=== PATIENT | female | born 1970 | race Caucasian/White ===

== ENCOUNTER → 2016-08-18 | Outpatient (REF) | payer MEDICAID ==
[2016-08-18 10:16] LABS: BASO % 0.4 % (0.0-1.0); EOS # 0.1 K/mm3 (0.0-0.50); LYMPH # 1.1 K/mm3 (1.5-4.5); LYMPH % 27.6 % (24.0-44.0); MEAN CORPUSCULAR VOLUME 87.5 fl (80.0-96.0); MONO # 0.4 K/mm3 (0.0-0.8); MONO % 8.4 % (0.0-5.0); NEUTROPHILS # 2.4 K/mm3 (1.8-7.7); RED CELL DISTRIBUTION WIDTH 14.3 % (11.5-14.5); WHITE BLOOD COUNT 4.1 K/mm3 (4.0-10.0)
[2016-08-18 10:44] LABS: ALBUMIN 2.8 GM/DL (3.2-5.2); ALKALINE PHOSPHATASE 112 U/L (45-117); ALT/SGPT 32 U/L (12-78); ANION GAP 6 MEQ/L (8-16); AST/SGOT 19 U/L (15-37); BILIRUBIN,TOTAL 0.2 MG/DL (0.2-1.0); BLOOD UREA NITROGEN 18 MG/DL (7-18); CALCIUM LEVEL 8.8 MG/DL (8.5-10.1); CARBON DIOXIDE LEVEL 30 MEQ/L (21-32); CHLORIDE LEVEL 109 MEQ/L (98-107); CHOLESTEROL LEVEL 148 MG/DL (<200); GLOMERULAR FILTRATION RATE > 60.0 (>58); GLUCOSE, FASTING 96 MG/DL (70-105); POTASSIUM SERUM 4.6 MEQ/L (3.5-5.1); SODIUM LEVEL 145 MEQ/L (136-145); TOTAL PROTEIN 7.5 GM/DL (6.4-8.2); TRIGLYCERIDES LEVEL 52 MG/DL (<150)
== END ==
LOC: SKLABADC 08:31
PROVIDERS: ATTEND Orthopaedic Surgery
DX: G30.9 Alzheimer's disease, unspecified (principal); M08.00 Unspecified juvenile rheumatoid arthritis of unspecified site; F02.80 Dementia in other diseases classified elsewhere, unspecified severity, without behavioral disturbance, psychotic disturbance, mood disturbance, and anxiety

== ENCOUNTER 2016-09-19 10:35 | Inpatient (IN) | payer MEDICARE, MEDICAID ==
[~2016-09-19] VITALS: Ht 121.9 cm; Wt 47.5 kg
[2016-09-19 11:44] LABS: MEAN CORPUSCULAR HGB CONC 32.1 g/dl (32.0-36.5); MEAN CORPUSCULAR VOLUME 87.1 fl (80.0-96.0); PLATELET COUNT, AUTOMATED 247 k/mm3 (150-450); RED CELL DISTRIBUTION WIDTH 14.5 % (11.5-14.5); WHITE BLOOD COUNT 4.6 K/mm3 (4.0-10.0)
[2016-09-19 11:47] LABS: ANION GAP 8 MEQ/L (8-16); BLOOD UREA NITROGEN 15 MG/DL (7-18); CALCIUM LEVEL 8.5 MG/DL (8.5-10.1); CARBON DIOXIDE LEVEL 29 MEQ/L (21-32); CHLORIDE LEVEL 103 MEQ/L (98-107); CREATININE FOR GFR 0.44 MG/DL (0.55-1.02); GLOMERULAR FILTRATION RATE > 60.0 (>58); GLUCOSE, FASTING 108 MG/DL (70-105); POTASSIUM SERUM 3.5 MEQ/L (3.5-5.1); SODIUM LEVEL 140 MEQ/L (136-145)
[2016-09-19 12:42] LABS: BANDS 2 % (< 11); EOSINOPHILS 1 % (0-5); NUCLEATED RED BLOOD CELL 1 % (0-0)
[2016-09-19 12:45] LABS: ANISOCYTOSIS 1+; HYPOCHROMASIA 1+; POLYCHROMASIA 1+
[2016-09-19] MEDS ORDERED: NS 1,000 ML IV SCH (12:45)
--- NOTE | 2016-09-19 12:45 | REP ---
CHEST, PORTABLE: AP portable view of the chest is performed. There is no acute infiltrate. The heart does not appear to be significantly enlarged. The mediastinal silhouette appears unremarkable. IMPRESSION: No acute infiltrate. Signed by Shaq Marinelli MD 09/19/2016 04:39 P
--- NOTE | 2016-09-19 14:09 | REP ---
CT HEAD WITHOUT CONTRAST: HISTORY: Weakness. Areas of decreased attentuation are present in the periventricular white matter. This represents small vessel ischemic disease. There is no intraparenchymal hemorrhage, mass, or midline shift. Calcifications are present in the cerebellum. The ventricular system and cortical sulci as well as subarachnoid space in the posterior fossa are dilated consistent with mild volume loss. There is no extracerebral collection. The visualized sinuses are clear. There is diffuse thickening of the calvarium. IMPRESSION: 1. Small vessel ischemic disease. 2. Mild volume loss. Signed by Fco Masterson MD 09/19/2016 02:23 P
[2016-09-19] MEDS ORDERED: ONDANSETRON 4MG/2ML VIAL (J2405) IV PRN (15:00)
[2016-09-19] MEDS ORDERED: ACETAMINOPHEN TAB 650MG DOSE (2X325MG) PO PRN (15:00)
[2016-09-19] MEDS ORDERED: LORazepam 2 MG/ML VIAL (J2060) IV STA (15:28)
[2016-09-19 16:09] LABS: ERYTHROCYTE SEDIMENTATION RATE 67 mm/hr (0-20)
--- NOTE | 2016-09-19 16:39 | HPEPDOC ---
General Date of Admission Sep 19, 2016 at 14:50 Primary Care Physician: OYAV MCINTOSH MD Chief Complaint The patient is a 46-year-old female admitted with a reason for visit of AMS Source: Patient, Family Exam Limitations: Clinical conditions History of Present Illness Ms. Hawkins is a 46-year-old female who presents to the ED with altered mental status. She is accompanied by 2 of her brothers, one of which is her caregiver. She has had baseline mental retardation since , her mother had decided not to pursue further testing when she was a child, therefore she does not have any official diagnosis at this time. Over the past 1-1.5 weeks she has become more recluse, less interactive, less interested in activities that she previously enjoyed such as watching television and having a conversation. Now, she only sits quietly in the corner and does not interact with anyone or anything else. Approximately one week ago she did have diarrhea, and she had a fever approximately 4 days ago, and during that time she is also had decreased oral intake, therefore she does not particularly have formed stools at this time, but her caregiver informs us that she is only really been drinking liquid supplementation, and has not eaten real meals for a few days. In addition to this she has also been avoiding the use of her right leg. Apparently at baseline she is able to ambulate with a walker, she may need assist of one person to stand her up to get to a walker. Over the past 1-1.5 weeks she has not been able to ambulate with a walker, and does not move her right leg. The caregiver states that she does not appear to be in pain as he is able to pick her up and place her into a wheelchair without any complaints from her. She also had x-rays done of her bilateral lower extremities performed at the [facility] in [facility] on [facility], and apparently these records are available at her PCP's office in [facility]. According to her caregiver it appears that all of these x-rays were negative. Upon questioning her, she does respond with some appropriate responses such as "I want to go home" and when asked if she is in pain she replied appropriately "my back hurts" and therefore she does have fluent speech with no difficulty word finding or word substitution, but according to her caregivers she is significantly less interactive, and she only answers just a few questions, where normally she would be very talkative. 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 Apparently after her hip replacement she was able to ambulate freely, but over the years her hip replacements of deteriorated and she has not had them replaced, therefore she now requires ambulation with a walker. Bilateral cataract repair Family History Significant Family History: No pertinent family hx Social History * Smoker: Denies Alcohol: Denies Drugs: denies Recent Travel/Sick Contacts: Denies: Recent sick contacts, Recent travel Psychosocial History: Mental handicap Lives at home with her brother and his , and previously she was cared for by her mother who had . She does go out to adult daycare at the [facility]. Review of Symptoms Other systems Secondary to mental status, review of systems is unobtainable. She does state that she has back pain, and that she wishes to go home. Caregiver denies any fevers, chills, indication of pain or malaise over the past few days. She did have a fever approximately 4 days ago, but none since. Caregiver also denies any nausea, vomiting, does admit to loose stools recently and diarrhea approximately 1 week ago. Otherwise, they're not aware of any additional symptomatology. Physical Examination General Exam: Positive: Alert, Cooperative, Mild Distress, Other (constantly turning her head from left to right, possibly indicating some anxiety about her surroundings) Eye Exam: Positive: Conjunctiva & lids normal, EOMI, Negative: Sclera icteric ENT Exam: Positive: Atraumatic Neck Exam: Positive: Supple, Negative: JVD, thyromegaly Chest Exam: Positive: Clear to auscultation, Normal air movement Heart Exam: Positive: Normal S1, Normal S2, Rate Normal, Regular Rhythm, Negative: Murmurs, Rubs Telemetry: Positive: No significant arrhythmia, Sinus, Tachycardia Abdomen Exam: Positive: Normal bowel sounds, Soft, Negative: Hepatospenomegaly, Tenderness Extremity Exam: Positive: Normal pulses, Negative: Clubbing, Cyanosis, Edema Skin Exam: Positive: Nl turgor and temperature, Negative: Breakdown, Lesion Neuro Exam: Positive: Cranial Nerves 3-12 NL, Normal Gait, Normal Speech, Reflexes 2+ Psych Exam: Positive: Mental status NL, Mood NL, Oriented x 3 Vital Signs Temperature 97.5, pulse 110 regular, respiratory rate 20, blood pressure 126/84 , pulse oximetry 96% on room air Laboratory Data Labs 24H Laboratory Tests 2 09/19/16 11:13: Anion Gap 8, Anisocytosis 1+, Atypical Lymphocytes 8H, Band Neutrophils 2, White Blood Count 4.6, Red Blood Count 4.38, Hemoglobin 12.2, Hematocrit 38.1, Mean Corpuscular Volume 87.1, Mean Corpuscular Hemoglobin 28.0, Mean Corpuscular Hemoglobin Concent 32.1, Red Cell Distribution Width 14.5, Platelet Count 247, Neutrophils (%) (Auto) , Lymphocytes (%) (Auto) , Monocytes (%) (Auto ) , Eosinophils (%) (Auto) , Basophils (%) (Auto) , Neutrophils # (Auto) , Lymphocytes # (Auto) , Monocytes # (Auto) , Eosinophils # (Auto) , Basophils # ( Auto) , C-Reactive Protein, Quantitative 7.08H, Blood Urea Nitrogen 15, Creatinine 0.44L, Sodium Level 140, Potassium Level 3.5, Chloride Level 103, Carbon Dioxide Level 29, Calcium Level 8.5, Total Creatine Kinase 49, Creatine Kinase MB 1.0, Creatine Kinase MB Relative Index 2.04, Eosinophils (Manual) 1, Glomerular Filtration Rate > 60.0, Hypochromasia 1+, Lactic Acid Level 1.2, Large Unclassified Cells # , Large Unclassified Cells % , Lymphocytes (Manual) 24, Monocytes (Manual) 14H, Neutrophils 51, Nucleated Red Blood Cells 1H, Platelet Estimate NORMAL, Polychromasia 1+ 09/19/16 11:28: Urine Amorphous Sediment , Urine Appearance CLOUDYH, Urine Color CHUY, Urine pH 6.0, Urine Specific [place] 1.020, Urine Protein 1+H, Urine Glucose (UA) NEGATIVE, Urine Ketones 1+H, Urine Urobilinogen 4.0H, Urine Bilirubin NEGATIVE, Urine Leukocyte Esterase NEGATIVE, Urine Bacteria (Auto) NEGATIVE, Urine Blood NEGATIVE, Urine Calcium Carbonate Cryst(Auto) , Urine Calcium Oxalate Cryst ( Auto) , Urine Calcium Phosphate Minal (Auto) , Urine Cellular Casts , Urine Cystine Crystals , Urine Granular Casts (Auto) , Urine Hyaline Casts (Auto) 0, Urine Leucine Crystals , Urine Mucus (Auto) SMALL, Urine Nitrite NEGATIVE, Urine Oval Fat Bodies (Auto) , Urine RBC (Auto) 0, Urine Renal Epithelial Cells , Urine Sperm (Auto) , Urine Squamous Epithelial Cells 0, Urine Transitional Epithelial Cells , Urine Trichomonas (Auto) , Urine Triple Phosphate Cryst (Auto ) , Urine Tyrosine Crystals , Urine Uric Acid Crystals (Auto) , Urine WBC (Auto ) 0, Urine Waxy Casts (Auto) , Urine Yeast-Like Cells (Auto) CBC/BMP Laboratory Tests 09/19/16 11:13 Calcium Level 8.5, Total Creatine Kinase 49, Red Blood Count 4.38, Mean Corpuscular Volume 87.1, Mean Corpuscular Hemoglobin 28.0, Mean Corpuscular Hemoglobin Concent 32.1, Red Cell Distribution Width 14.5, Neutrophils (%) (Auto ) , Lymphocytes (%) (Auto) , Monocytes (%) (Auto) , Eosinophils (%) (Auto) , Basophils (%) (Auto) , Neutrophils # (Auto) , Lymphocytes # (Auto) , Monocytes # (Auto) , Eosinophils # (Auto) , Basophils # (Auto) Microbiology Microbiology 09/19/16 Urine Culture, Received Pending Problems (1) Altered mental status Status: Acute Problem Text: Initial laboratory evaluation performed in the ED of UA, BMP, lactic acid, CBC, head CT, and chest x-ray did not reveal any obvious etiology of her decreased mentation. Therefore she will be admitted to the hospital for further evaluation. As the patient is unable to provide a good history or admit to any symptomatology, we will cast a wide net. We will order CBC, ammonia, GI panel, respiratory panel, we will go ahead and order a urine culture as well and despite a benign UA. Differential diagnosis may include infectious etiology of the GI tract, urinary tract, respiratory tract, or REAL [employer]ICE SUPER[employer]OR. We will start her on normal saline. Other differential diagnosis may include stroke, acute decline in chronic cognitive impairment, Lewy body dementia or other early onset dementia, for which imaging has been ordered. (2) Right leg weakness Status: Acute Problem Text: As she has exhibited some right leg weakness, this may be secondary to pain, although her caregiver does not seem to think that she has exhibited much pain. On exam she was able to move all 4 extremities, and neurological exam was intact, therefore a neurological etiology is less likely. We will request copies of her imaging that was taken previously, and will order further imaging based on what is already been done. We will also have the physical therapy come and do an evaluation as well, and have them monitor her progress. (3) Decreased interest in activities Status: Acute (4) Elevated LFTs Status: Acute Problem Text: Will order Gallbladder US, amylase, lipase, will continue to monitor labwork as well. (5) Abnormal brain MRI Status: Acute Problem Text: Will consult Neurology for their input concerning her whole presentation, especially in light of her abnormal Brain MRI. (6) Protruded lumbar disc Status: Acute Problem Text: May be contributing to her back pain although there is no indication of compression of the nerves as they exit the foramina (at least while laying flat on the MRI table). (7) Back pain Status: Chronic Problem Text: She does grimace when lifting her legs, and she is complaining of back pain, but caregiver states that he has been able to pick her up and put her in wheelchair without complaint. She often complains of back pain, it is difficult to determine the severity of this. (8) Bruxism (teeth grinding) Status: Chronic Problem Text: She often does this per caregiver, but she is now doing this nonstop, which is different from her baseline Plan / VTE VTE Prophylaxis Ordered?: Yes (Heparin) SARHA MCDOWELL DO Sep 19, 2016 16:06
--- NOTE | 2016-09-19 17:19 | REP ---
MRI BRAIN WITHOUT CONTRAST: HISTORY: Altered mental status. COMPARISON: CT 09/19/2016. Diffuse increased signal intensity on T2-weighted images is present in the periventricular and subcortical white matter. There is no intraparenchymal hemorrhage, infarct, mass or midline shift. Decreased signal intensity on T2-weighted images is present in the basal ganglia. The ventricular system and cortical sulci as well as subarachnoid space in the posterior fossa are dilated consistent with mild volume loss. There is no extracerebral collection. There is diffuse thickening of the calvarium. Minimal mucosal thickening is present in the right maxillary sinus. IMPRESSION: There is diffuse increased signal intensity in the periventricular and subcortical white matter in the cerebral hemispheres. This may represent small vessel ischemic, metabolic or possibly dysmyelinating disease. Signed by Fco Masterson MD 09/20/2016 08:39 A
--- NOTE | 2016-09-19 17:20 | REP ---
MR LUMBAR SPINE WITHOUT AND WITH CONTRAST: HISTORY: Back pain. CONTRAST: ProHance 10 mL. Slight decreased signal intensity on T2 weighted images is present in the L3-4 through L5-S1 intervertebral discs. The discs are decreased in height. These findings are consistent with disc degeneration. There is no disc bulge or herniation at the L1-2, L2-3, L4-5, and L5-S1 levels. The nerves exit the neural foramina without compression. A small central disc protrusion is present at the L3-4 level. There is minimal compression of the thecal sac. The L3 nerves exit the neural foramina without compression. The conus medullaris is normal in appearance terminating at the level of the L1-2 intervertebral disc . Normal signal intensity is present in the lumbar vertebral bodies. IMPRESSION: Small disc protrusion at the L3-4 level with minimal thecal sac compression. Signed by Fco Masterson MD 09/20/2016 08:37 A
[2016-09-19] MEDS: NS 1,000 ML IV SCH (17:49)
[2016-09-19 18:05] LABS: ALBUMIN 2.4 GM/DL (3.2-5.2); ALBUMIN/GLOBULIN RATIO 0.67 (1.00-1.93); ALKALINE PHOSPHATASE 190 U/L (45-117); ALT/SGPT 183 U/L (12-78); ANION GAP 5 MEQ/L (8-16); AST/SGOT 114 U/L (15-37); BILIRUBIN,TOTAL 0.3 MG/DL (0.2-1.0); BLOOD UREA NITROGEN 13 MG/DL (7-18); CALCIUM LEVEL 7.7 MG/DL (8.5-10.1); CARBON DIOXIDE LEVEL 29 MEQ/L (21-32); CHLORIDE LEVEL 109 MEQ/L (98-107); CREATININE FOR GFR 0.31 MG/DL (0.55-1.02); GLOMERULAR FILTRATION RATE > 60.0 (>58); GLUCOSE, FASTING 89 MG/DL (70-105); POTASSIUM SERUM 3.9 MEQ/L (3.5-5.1); SODIUM LEVEL 143 MEQ/L (136-145)
[2016-09-19 19:10] LABS: AMYLASE 53 U/L (25-115)
[2016-09-19] MEDS: HEPARIN SOD (PORCINE) 5000 UNITS/ML VIAL SC SCH (21:30)
[2016-09-19 22:00] VITALS: BP 124/78
[2016-09-20] MEDS: NS 1,000 ML IV SCH ×3 (04:20→22:38)
[2016-09-20] MEDS: HEPARIN SOD (PORCINE) 5000 UNITS/ML VIAL SC SCH ×3 (05:23→22:37)
[2016-09-20 06:00] VITALS: BP 148/79
[2016-09-20 07:03] LABS: MEAN CORPUSCULAR HEMOGLOBIN 27.5 pg (27.0-33.0); MEAN CORPUSCULAR HGB CONC 31.4 g/dl (32.0-36.5); MEAN CORPUSCULAR VOLUME 87.6 fl (80.0-96.0); PLATELET COUNT, AUTOMATED 211 k/mm3 (150-450); RED CELL DISTRIBUTION WIDTH 14.4 % (11.5-14.5); WHITE BLOOD COUNT 3.1 K/mm3 (4.0-10.0)
[2016-09-20 07:35] LABS: BANDS 12 % (< 11)
[2016-09-20 07:36] LABS: ANISOCYTOSIS 1+
[2016-09-20 07:56] LABS: ALBUMIN 2.3 GM/DL (3.2-5.2); ALBUMIN/GLOBULIN RATIO 0.55 (1.00-1.93); ALKALINE PHOSPHATASE 189 U/L (45-117); ALT/SGPT 154 U/L (12-78); AMYLASE 46 U/L (25-115); ANION GAP 7 MEQ/L (8-16); AST/SGOT 82 U/L (15-37); BILIRUBIN,DIRECT 0.2 MG/DL (0.0-0.2); BILIRUBIN,TOTAL 0.4 MG/DL (0.2-1.0); BLOOD UREA NITROGEN 7 MG/DL (7-18); CALCIUM LEVEL 7.6 MG/DL (8.5-10.1); CARBON DIOXIDE LEVEL 26 MEQ/L (21-32); CHLORIDE LEVEL 107 MEQ/L (98-107); CHOLESTEROL LEVEL 116 MG/DL (<200); GLOMERULAR FILTRATION RATE > 60.0 (>58); GLUCOSE, FASTING 91 MG/DL (70-105); POTASSIUM SERUM 3.4 MEQ/L (3.5-5.1); SODIUM LEVEL 140 MEQ/L (136-145); TOTAL PROTEIN 6.5 GM/DL (6.4-8.2); TRIGLYCERIDES LEVEL 99 MG/DL (<150)
[2016-09-20] MEDS ORDERED: POTASSIUM CHLORIDE 10 MEQ SR TABLET PO ONE (08:15)
--- NOTE | 2016-09-20 09:41 | REP ---
RIGHT UPPER QUADRANT ULTRASOUND: Real-time sonographic evaluation of the right upper quadrant performed. Gallbladder demonstrates no evidence of intraluminal sludge or calculi, wall thickening or pericholecystic fluid. There is no intrahepatic or extrahepatic biliary dilatation, common bile duct measuring 2 mm in diameter. The liver and pancreas demonstrate no gross mass. The pancreas is not optimally seen due to overlying bowel gas. Right kidney appears somewhat atrophic with a length of 8.1 cm. There is no hydronephrosis. The study is somewhat limited due to patient motion. IMPRESSION: Essentially negative right upper quadrant ultrasound. Mild right renal atrophy. Signed by Shaq Marinelli MD 09/20/2016 12:14 P
[2016-09-20 14:00] VITALS: BP 166/91
[2016-09-20] MEDS ORDERED: ALBUTEROL SULFATE 2.5 MG/0.5 ML INH NEB SOLN INH PRN (14:45)
[2016-09-20] MEDS ORDERED: guaiFENesin DM LIQ 10ML UD PO PRN (14:45)
--- NOTE | 2016-09-20 14:51 | IPNPDOC ---
Text Note Date of Service The patient was seen on 09/20/16. NOTE Subjective: Pt still feels ill. Denies CP/SOB/Palpitations. Objective: Vitals: (see below) General: No acute distress, laying comfortably in bed. HEENT: Moist mucous membranes. Neck: No JVD or lymphadenopathy Cardiac: RRR, No murmurs Pulm: Exp wheezing and rhonchi b/l. No stridor or use of accessory muscles. Abd: NT/ND + BS Ext: No edema or cyanosis. Strength 5/5 BUE. Unable to access strength of BLE as pt is not cooperating. Labs (see below) Images: CT Head 09/19/16 IMPRESSION: 1. Small vessel ischemic disease. 2. Mild volume loss. MRI Brain 09/19/16 IMPRESSION: There is diffuse increased signal intensity in the periventricular and subcortical white matter in the cerebral hemispheres. This may represent small vessel ischemic, metabolic or possibly dysmyelinating disease. MRI lumbar spine 09/19/16 IMPRESSION: Small disc protrusion at the L3-4 level with minimal thecal sac compression. Abd u/s 09/19/16 IMPRESSION: Essentially negative right upper quadrant ultrasound. Mild right renal atrophy. Assessment/Plan 1. Metabolic encephalopathy 2/2 viral illness. Improved. 2. Acute bronchitis - viral. nebs/steroids/Robitussin 2. Dehydration 2/2 viral illness - cont IVF 3. Transaminitis - trending down. Abd u/s negative. Cont to monitor. 4. ?RLE weakness. MRI Brain (see above). Unable to access strength as pt is not cooperating. PT and neuro eval. 5. Mental retardation since . 6. Disc herniation - physical therapy and pain control DVT prophy: Hep SQ VS,Fishbone, I+O VS, Fishbone, I+O Laboratory Tests 09/19/16 17:30 Calcium Level 7.7 L, Aspartate Amino Transf (AST/SGOT) 114 H, Alanine Aminotransferase (ALT/SGPT) 183 H, Alkaline Phosphatase 190 H, Total Bilirubin 0.3, Total Protein 6.0 L, Albumin 2.4 L 09/20/16 06:47 Red Blood Count 4.01, Mean Corpuscular Volume 87.6, Mean Corpuscular Hemoglobin 27.5, Mean Corpuscular Hemoglobin Concent 31.4 L, Red Cell Distribution Width 14.4, Neutrophils (%) (Auto) , Lymphocytes (%) (Auto) , Monocytes (%) (Auto) , Eosinophils (%) (Auto) , Basophils (%) (Auto) , Neutrophils # (Auto) , Lymphocytes # (Auto) , Monocytes # (Auto) , Eosinophils # (Auto) , Basophils # ( Auto) Vital Signs Date Time Temp Pulse Resp B/P Pulse Ox O2 Delivery O2 Flow Rate FiO2 09/20/16 14:00 100.7 112 16 166/91 93 Room Air I&O- Last 24 Hours up to 6 AM 09/20/16 06:00 Intake Total 1800 ml Output Total 0 ml Balance 1800 ml DAHIANA PEDRAZA MD Sep 20, 2016 14:50
[2016-09-20] MEDS: ACETAMINOPHEN TAB 650MG DOSE (2X325MG) PO PRN ×2 (14:52→22:37)
[2016-09-20] MEDS: IPRATROPIUM 0.5MG/ALBUTEROL 2.5MG INH SOL UD 3ML (DUONEB)(J7620) NEB SCH ×3 (15:13→23:47)
[2016-09-20] MEDS: methylPREDNISolone INJ 125 MG/2 ML VIAL (J2930) IV SCH (16:28)
--- NOTE | 2016-09-20 19:32 | CR ---
DATE OF PAIN CLINIC CONSULTATION: 09/20/2016 REFERRING PHYSICIAN: Dana Love MD CHIEF COMPLAINT: Pain. HISTORY OF PRESENT ILLNESS: Jazmyn is a 46-year-old female admitted yesterday with complaints of fever and mental status changes. The patient has mental retardation since . She is cared for by her brother and his . Brother is at the bedside. Brother tells me that she is not in pain and that she cries and reacts in this manner because she wants to go home. There has been a question of why her right leg is not moving and neurology has been consulted. MRI of the lumbosacral spine is without neural deficits. The patient does not exhibit any pain with palpation of her spine or sacroiliac joint region. According to the history from the brother/recreational therapist she has been "not herself" over the past week. MEDICATIONS: No active prescriptions or reported medications. ALLERGIES: SULFA ANTIBIOTICS. PAST MEDICAL HISTORY: Mental retardation. Vitamin D deficiency. PAST SURGICAL HISTORY Bilateral hip replacement at age 20. Bilateral cataract repair. FAMILY HISTORY: No significant family history. SOCIAL HISTORY: According to brother denies recent sick contacts or recent travel. Lives at home with her brother and his and previously was cared for by her mother who had . She goes to adult daycare at [facility]. She is not a smoker. She does not use alcohol. REVIEW OF SYSTEMS: Obtainable only through recreational therapist at bedside and positive for decreased oral intake of both fluids and solids. Four day history of a fever. Episodes of loose stool. Mental status changes. PHYSICAL EXAMINATION: Awake, alert. Appears acutely ill. Cooperative with assist of brother. Vital signs: 100.7, 112, 16, 166/91, O2 saturation 93% on room air. Heart: Cardiovascular - Heart rate regular. S1-S2. Respiratory: Decreased breath sounds bilaterally with coarse rhonchi bilaterally. Inspection of spine: Palpation - negative for pain. Lower extremities warm to touch. Does not show signs of pain with palpation of her legs. No swelling noted. ASSESSMENT: Right leg neuropathy. PLAN: At this point I do not think it is necessary to consider placing her on any pain medications. Possibly use of tramadol 50 mg every 4 hours if family members feel that she is uncomfortable to treat the pain would be appropriate. Continue with efforts for physical therapy (PT) and rehab. Thank you for allowing us to participate in the care of your patient. If you have any questions or concerns please do not hesitate to contact me. Sincerely, Sheeba Méndez, Family nurse practitioner [facility]. FELIX
--- NOTE | 2016-09-20 21:32 | ECGEPIP ---
Stationary ECG Study [facility] - ED Test Date: 2016-09-19 Pat Name: JOHNNA RIVERO Department: Room: - Gender: F Ticket Agent: JKarlos : [id number] Requested By: ADIEL Carr Order Number: [id number] Reading MD: Rebecca Vences Measurements Intervals [place] Rate: 111 P: 41 TN: 145 QRS: 43 QRSD: 62 T: 46 QT: 293 QTc: 398 Interpretive Statements SINUS TACHYCARDIA NONSPECIFIC T-WAVE ABNORMALITY ABNORMAL RHYTHM ECG NO PRIOR FOR COMPARISON Electronically Signed On 09-20-2016 21:32:27 EDT by Rebecca Vences
[2016-09-20 22:00] VITALS: BP 147/72
[2016-09-21] MEDS: methylPREDNISolone INJ 125 MG/2 ML VIAL (J2930) IV SCH ×3 (00:52→15:32)
[2016-09-21] MEDS: IPRATROPIUM 0.5MG/ALBUTEROL 2.5MG INH SOL UD 3ML (DUONEB)(J7620) NEB SCH ×5 (03:12→22:02)
[2016-09-21] MEDS: HEPARIN SOD (PORCINE) 5000 UNITS/ML VIAL SC SCH ×4 (05:53→21:27)
[2016-09-21] MEDS: NS 1,000 ML IV SCH ×2 (05:53→15:16)
[2016-09-21 06:00] VITALS: BP 146/80
[2016-09-21 06:58] LABS: MEAN CORPUSCULAR HGB CONC 32.4 g/dl (32.0-36.5); MEAN CORPUSCULAR VOLUME 86.4 fl (80.0-96.0); PLATELET COUNT, AUTOMATED 224 k/mm3 (150-450); RED CELL DISTRIBUTION WIDTH 14.4 % (11.5-14.5); WHITE BLOOD COUNT 9.4 K/mm3 (4.0-10.0)
[2016-09-21 07:06] LABS: ALBUMIN/GLOBULIN RATIO 0.47 (1.00-1.93); ALKALINE PHOSPHATASE 210 U/L (45-117); ALT/SGPT 116 U/L (12-78); ANION GAP 11 MEQ/L (8-16); AST/SGOT 44 U/L (15-37); BILIRUBIN,DIRECT 0.1 MG/DL (0.0-0.2); BILIRUBIN,TOTAL 0.3 MG/DL (0.2-1.0); BLOOD UREA NITROGEN 6 MG/DL (7-18); CALCIUM LEVEL 7.5 MG/DL (8.5-10.1); CARBON DIOXIDE LEVEL 21 MEQ/L (21-32); CHLORIDE LEVEL 110 MEQ/L (98-107); CREATININE FOR GFR 0.36 MG/DL (0.55-1.02); GLOMERULAR FILTRATION RATE > 60.0 (>58); GLUCOSE, FASTING 160 MG/DL (70-105); POTASSIUM SERUM 3.4 MEQ/L (3.5-5.1); SODIUM LEVEL 142 MEQ/L (136-145); TOTAL PROTEIN 6.3 GM/DL (6.4-8.2)
[2016-09-21 07:35] LABS: BANDS 6 % (< 11)
[2016-09-21 07:36] LABS: ANISOCYTOSIS 1+
--- NOTE | 2016-09-21 07:49 | CR ---
DATE OF CONSULTATION: 09/20/2016 REFERRING PHYSICIAN: Dana Love MD REASON FOR CONSULTATION: Abnormal gait and altered mental status. HISTORY OF PRESENT ILLNESS: Jazmyn Hawkins is a 46-year-old woman who was admitted at [facility] due to altered mental status. Her brothers are her caregivers. She has history of developmental delay since . 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 She also has history of juvenile rheumatoid arthritis. According to her brother, who is her caregiver, that whenever she gets infection or sick her functional and cognitive abilities decline rapidly. Patient needed special education. According to her brother, she did do the best in her life between age 10-37 years of age. He has noted decline in her cognitive, speech and motor skills over the last 10 years. Her primary care physician diagnosed her with dementia over last couple of years. There was a plan for her to see a neurologist but that did not happen. Patient herself is not able to provide much history. She has diarrhea for the last 1 week. She had fever 4 days ago at home. She has decreased oral intake. She became less interactive, more reclusive and less interested in activities. At her baseline, she is able to ambulate with a walker. She may need assistance from one person or stand up with a walker. Over the last 1 week, she has not been able to ambulate with a walker. She was not moving her right leg properly. Patient denies any headaches, neck or back pain. DIAGNOSTIC STUDIES: Her MRI scan of brain was reviewed and showed diffuse increased signal in bilateral cerebral white matter. There is also atrophy of white matter and lund matter diffusely. PAST MEDICAL HISTORY: 1. Mental retardation since . 2. Juvenile rheumatoid arthritis. 3. Bilateral hip dislocation at requiring hip replacements later. 4. Cataract repair. ALLERGIES: SULFA. FAMILY HISTORY: There is no family history of neurological disorders or developmental delay. SOCIAL HISTORY: She denies smoking, alcohol or illicit drugs. REVIEW OF SYSTEMS: All systems were reviewed with the patient and her brother and were found to be noncontributory except as mentioned in the history of present illness. PHYSICAL EXAMINATION: Temperature 97.3 and her maximum temperature in the last 48 hours was 100.7. Pulse 112. Respiratory rate 16. Blood pressure 166/91. 93% saturations on room air. Heart: Regular rate and rhythm. Lungs: Clear to auscultation. Abdomen: Soft, nontender, nondistended. No pedal edema. Neurological exam: Patient is awake and oriented to self mostly. Her speech is mildly dysarthric. Extraocular muscles are intact. No (dictation cut off). Tongue and uvula are midline. 4/5 strength in bilateral upper extremities. Strength in her bilateral lower extremities is 4-/5. Deep tendon flexes are 2+ throughout. Her plantars are mute. Gait could not be tested. ASSESSMENT: 1. 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 2. 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 3. Premature and hypoxic injury can also result in similar clinical profile. 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 4. There is no evidence of an acquired demyelinating disease such as multiple sclerosis or ischemic stroke. PLAN: 1. Physical and occupational therapy. 2. Continue treatment of her current upper respiratory or gastrointestinal (GI) infection as deemed appropriate by primary medicine team.
[2016-09-21] MEDS ORDERED: POTASSIUM CHLORIDE 10 MEQ SR TABLET PO ONE (09:00)
[2016-09-21] MEDS: ACETAMINOPHEN TAB 650MG DOSE (2X325MG) PO PRN (09:09)
[2016-09-21] MEDS ORDERED: traMADol 50 MG TAB PO PRN (09:30)
--- NOTE | 2016-09-21 10:15 | REP ---
CT of the chest without IV contrast: Comparison is the portable plain film study dated 09/19/2016. There are multifocal confluent subsegmental infiltrates in all lobes of both lungs. These are not visible on the comparison portable study. There are no pleural effusions. No masses are identified, however, masses could be obscured by the infiltrates. There is a borderline enlarged aorticopulmonic mediastinal node measuring 9 mm short axis. There is no other mediastinal lymphadenopathy. There is no axillary lymphadenopathy. The study is insensitive for hilar adenopathy in the absence of IV contrast. The unenhanced thoracic aorta is unremarkable. Cardiac size is normal. The unenhanced visualized upper abdominal contents are unremarkable. Impression: Multifocal confluent subsegmental infiltrates in all lobes of both lungs. These infiltrates are not visible on the comparison portable plain film study. Signed by Shaq Wallis MD 09/21/2016 10:07 A
[2016-09-21] MEDS: LevoFLOXacin IV 500 MG in APPROPRIATE DILUENT 1 EA IV SCH (13:09)
--- NOTE | 2016-09-21 14:16 | IPNPDOC ---
Text Note Date of Service The patient was seen on 09/21/16. NOTE Subjective: Pt still coughing. Denies CP/SOB/Palpitations. Objective: Vitals: (see below) General: No acute distress, laying comfortably in bed. HEENT: Moist mucous membranes. Neck: No JVD or lymphadenopathy Cardiac: RRR, No murmurs Pulm: Exp wheezing and rhonchi b/l. No stridor or use of accessory muscles. Abd: NT/ND + BS Ext: No edema or cyanosis. Strength 5/5 BUE. Unable to access strength of BLE as pt is not cooperating. Labs (see below) Images: CT Head 09/19/16 IMPRESSION: 1. Small vessel ischemic disease. 2. Mild volume loss. MRI Brain 09/19/16 IMPRESSION: There is diffuse increased signal intensity in the periventricular and subcortical white matter in the cerebral hemispheres. This may represent small vessel ischemic, metabolic or possibly dysmyelinating disease. MRI lumbar spine 09/19/16 IMPRESSION: Small disc protrusion at the L3-4 level with minimal thecal sac compression. Abd u/s 09/19/16 IMPRESSION: Essentially negative right upper quadrant ultrasound. Mild right renal atrophy. CT Chest 09/21/16 Impression: Multifocal confluent subsegmental infiltrates in all lobes of both lungs. These infiltrates are not visible on the comparison portable plain film study. Assessment/Plan 1. Metabolic encephalopathy 2/2 sepsis from CAP and viral illness. Improved. 2.Sepsis from CAP - multifocal (See CT chest above) - Started on Levaquin. Nebs/ steroids/Robitussin 3. Dehydration 2/2 #2 - cont IVF 3. Transaminitis - trending down. Abd u/s negative. Cont to monitor. 4. ?RLE weakness. MRI Brain (see above). Unable to access strength as pt is not cooperating. PTeval. Appreciate neuro input- leukodystrophy. 5. Mental retardation since . 6. Disc herniation - physical therapy and pain control. Pain management recommending tramadol. DVT prophy: Hep SQ VS,Fishbone, I+O VS, Fishbone, I+O Laboratory Tests 09/21/16 06:13 Red Blood Count 3.93 L, Mean Corpuscular Volume 86.4, Mean Corpuscular Hemoglobin 28.0, Mean Corpuscular Hemoglobin Concent 32.4, Red Cell Distribution Width 14.4, Neutrophils (%) (Auto) , Lymphocytes (%) (Auto) , Monocytes (%) (Auto) , Eosinophils (%) (Auto) , Basophils (%) (Auto) , Neutrophils # (Auto) , Lymphocytes # (Auto) , Monocytes # (Auto) , Eosinophils # (Auto) , Basophils # (Auto) Vital Signs Date Time Temp Pulse Resp B/P Pulse Ox O2 Delivery O2 Flow Rate FiO2 09/21/16 09:00 Room Air 09/21/16 06:00 98.3 108 16 146/80 93 I&O- Last 24 Hours up to 6 AM 09/21/16 06:00 Intake Total 1920 ml Output Total 0 ml Balance 1920 ml DAHIANA PEDRAZA MD Sep 21, 2016 14:16
[2016-09-21 14:50] VITALS: BP 136/78
[2016-09-21 16:00] VITALS: BP 137/87
[2016-09-21 19:38] VITALS: BP 147/88
[2016-09-21] MEDS: guaiFENesin ER 600 MG TAB PO SCH (21:27)
[2016-09-22] VITALS (7 sets, daily range): BP systolic 113–162; BP diastolic 69–89
[2016-09-22] MEDS: methylPREDNISolone INJ 125 MG/2 ML VIAL (J2930) IV SCH ×4 (00:28→23:47)
[2016-09-22] MEDS: NS 1,000 ML IV SCH (00:31)
[2016-09-22] MEDS: IPRATROPIUM 0.5MG/ALBUTEROL 2.5MG INH SOL UD 3ML (DUONEB)(J7620) NEB SCH ×7 (03:58→23:24)
[2016-09-22] MEDS: HEPARIN SOD (PORCINE) 5000 UNITS/ML VIAL SC SCH ×3 (05:07→20:43)
[2016-09-22 05:53] LABS: BASO % 0.1 % (0.0-1.0); EOS % 0.4 % (0.0-3.0); LARGE UNSTAINED CELL # 0.1 K/mm3 (0.0-0.4); LARGE UNSTAINED CELL % 1.2 % (0.0-4.0); LYMPH # 0.8 K/mm3 (1.5-4.5); LYMPH % 7.8 % (24.0-44.0); MEAN CORPUSCULAR HEMOGLOBIN 27.6 pg (27.0-33.0); MEAN CORPUSCULAR VOLUME 86.1 fl (80.0-96.0); MONO # 0.6 K/mm3 (0.0-0.8); MONO % 5.8 % (0.0-5.0); NEUTROPHILS # 8.7 K/mm3 (1.8-7.7); NEUTROPHILS % 84.7 % (36.0-66.0); PLATELET COUNT, AUTOMATED 316 k/mm3 (150-450); WHITE BLOOD COUNT 10.3 K/mm3 (4.0-10.0)
[2016-09-22 06:14] LABS: ALBUMIN/GLOBULIN RATIO 0.49 (1.00-1.93); ALKALINE PHOSPHATASE 167 U/L (45-117); ALT/SGPT 85 U/L (12-78); ANION GAP 10 MEQ/L (8-16); AST/SGOT 39 U/L (15-37); BILIRUBIN,DIRECT < 0.1 MG/DL (0.0-0.2); BILIRUBIN,TOTAL 0.2 MG/DL (0.2-1.0); BLOOD UREA NITROGEN 9 MG/DL (7-18); CALCIUM LEVEL 7.5 MG/DL (8.5-10.1); CARBON DIOXIDE LEVEL 22 MEQ/L (21-32); CHLORIDE LEVEL 114 MEQ/L (98-107); CREATININE FOR GFR 0.28 MG/DL (0.55-1.02); GLOMERULAR FILTRATION RATE > 60.0 (>58); GLUCOSE, FASTING 137 MG/DL (70-105); POTASSIUM SERUM 3.5 MEQ/L (3.5-5.1); SODIUM LEVEL 146 MEQ/L (136-145); TOTAL PROTEIN 6.1 GM/DL (6.4-8.2)
--- NOTE | 2016-09-22 08:32 | PHACANCOPD ---
PHARMACY VANCOMYCIN DOSING Pt Demographics Demographics Patient Age:46 , Weight:52.200 , Gender: female Adjusted Body Weight Date: 09/22/16, Adjusted Body Weight: [48.2] Kg Events Past 24 Hours Events Past 24 Hours: YES: Elevation in WBC, Pending Diagnostics Vancomycin Vancomycin indication: sepsis Vancomycin Target Ranges: 15-20 mcg/ml Vancomycin Load Y/N: Yes Load Dose Date Time Vancomycin Load Dose: 1G Date: 09/22/16 Time: 0900 Vancomycin Dose Date: 09/22/16. Current Vancomycin Dose: [750mg IV Q12H] Intermittent Dosing?: No Labs Labs Item Value Date Time White Blood Count 10.3 K/mm3 H 09/22/16 0518 White Blood Count 9.4 K/mm3 09/21/16 0613 White Blood Count 3.1 K/mm3 L 09/20/16 0647 Creatinine 0.28 MG/DL L 09/22/16 0518 Creatinine 0.30 MG/DL L 09/20/16 0647 Creatinine 0.36 MG/DL L 09/21/16 0613 Micro Microbiology 09/19/16 Blood Culture - Preliminary, Resulted No Growth after 48 hours. All Specime... 09/19/16 Blood Culture - Preliminary, Resulted No Growth after 48 hours. All Specime... 09/19/16 Respiratory Virus Panel (PCR) ([facility]) - Final, Complete Human Metapneumovirus 09/19/16 Urine Culture - Final, Complete Strep Gallolyticus Ssp Pasteu Creatinine Clearance Date:09/22/16. Est Creatinine Clearance: ~[85ml/min]. Pending Labs Vancomycin trough scheduled 09/24/16 @ 0800, prior to the 5th dose Assessment and Plan Maintaining Current Dose?: Yes Reason for dose change: No Dose Change Pharmacist Note Pharmacist Note Date: 09/22/16. Pharmacist note: Day #1 empiric vancomycin initiated with a 1g loading dose, followed by a maintenance regimen of 750mg IV Q12H for the treatment of sepsis to be given with IV levaquin - aiming for a goal trough of 15-20mcg/ml. WBC and pulse are currently elevated, and patient has been mildly febrile within the past 24 hours. 09/21/[address] shows infiltrates in both lungs. No PMH of MRSA or vanco use here at [facility]. The patient's scr today of 0.28 is not reflective of true renal function, and output has not been able to be well documented due to incontinence. A vancomycin trough has been scheduled @0800, prior to the 5th dose. We will continue to monitor and make adjustments accordingly if needed. CURT [facility] Sep 22, 2016 08:32
[2016-09-22] MEDS ORDERED: VANCOMYCIN HCL 1,000 MG, VIAL MATE ADAPTER 1 EACH in D5W 250 ML IV ONE (09:00)
[2016-09-22] MEDS: guaiFENesin ER 600 MG TAB PO SCH ×2 (09:40→20:43)
[2016-09-22] MEDS: ACETAMINOPHEN TAB 650MG DOSE (2X325MG) PO PRN (09:41)
[2016-09-22] MEDS ORDERED: SLF 3 ML SYR IV PRN (10:45)
[2016-09-22] MEDS: LevoFLOXacin IV 500 MG in APPROPRIATE DILUENT 1 EA IV SCH (11:40)
--- NOTE | 2016-09-22 11:42 | IPNPDOC ---
Text Note Date of Service The patient was seen on 09/22/16. NOTE Subjective: No acute changes overnight. Denies CP/SOB/Palpitations. Objective: Vitals: (see below) General: No acute distress, laying comfortably in bed. HEENT: Moist mucous membranes. Neck: No JVD or lymphadenopathy Cardiac: Tachycardic. Regular rhythm. No murmurs Pulm: Exp wheezing and rhonchi b/l. No stridor or use of accessory muscles. Abd: NT/ND + BS Ext: No edema or cyanosis. Strength 5/5 BUE. Unable to access strength of BLE as pt is not cooperating. Labs (see below) Images: CT Head 09/19/16 IMPRESSION: 1. Small vessel ischemic disease. 2. Mild volume loss. MRI Brain 09/19/16 IMPRESSION: There is diffuse increased signal intensity in the periventricular and subcortical white matter in the cerebral hemispheres. This may represent small vessel ischemic, metabolic or possibly dysmyelinating disease. MRI lumbar spine 09/19/16 IMPRESSION: Small disc protrusion at the L3-4 level with minimal thecal sac compression. Abd u/s 09/19/16 IMPRESSION: Essentially negative right upper quadrant ultrasound. Mild right renal atrophy. CT Chest 09/21/16 Impression: Multifocal confluent subsegmental infiltrates in all lobes of both lungs. These infiltrates are not visible on the comparison portable plain film study. Assessment/Plan 1. Metabolic encephalopathy 2/2 sepsis from CAP and viral illness. Improved. 2.Sepsis from CAP - multifocal (See CT chest above) - Started on Levaquin. Vancomycin added. Nebs/steroids/Robitussin. 3. Dehydration 2/2 #2 - patient has been well-hydrated. Discontinue IV fluids 3. Transaminitis - trending down. Abd u/s negative. Cont to monitor. 4. ?RLE weakness. MRI Brain (see above). Unable to access strength as pt is not cooperating. PTeval. Appreciate neuro input- leukodystrophy. 5. Mental retardation since . 6. Disc herniation - physical therapy and pain control. Pain management recommending tramadol, however will discontinue this is the patient's the is being reported to be increasingly drowsy with this. Continue Tylenol as needed. DVT prophy: Hep SQ VS,Fishbone, I+O VS, Fishbone, I+O Laboratory Tests 09/22/16 05:18 Red Blood Count 3.73 L, Mean Corpuscular Volume 86.1, Mean Corpuscular Hemoglobin 27.6, Mean Corpuscular Hemoglobin Concent 32.0, Red Cell Distribution Width 15.0 H, Neutrophils (%) (Auto) 84.7 H, Lymphocytes (%) (Auto ) 7.8 L, Monocytes (%) (Auto) 5.8 H, Eosinophils (%) (Auto) 0.4, Basophils (%) ( Auto) 0.1, Neutrophils # (Auto) 8.7 H, Lymphocytes # (Auto) 0.8 L, Monocytes # ( Auto) 0.6, Eosinophils # (Auto) 0.0, Basophils # (Auto) 0.0 Vital Signs Date Time Temp Pulse Resp B/P Pulse Ox O2 Delivery O2 Flow Rate FiO2 09/22/16 07:51 Nasal Cannula 2.0 09/22/16 04:29 20 09/22/16 04:00 98.9 126 148/79 90 I&O- Last 24 Hours up to 6 AM 09/22/16 06:00 Intake Total 2610 ml Output Total 0 ml Balance 2610 ml DAHIANA PEDRAZA MD Sep 22, 2016 11:42 DAHIANA PEDRAZA MD Sep 22, 2016 11:42
[2016-09-22] MEDS: SLF 3 ML SYR IV SCH ×2 (13:08→20:43)
--- NOTE | 2016-09-22 20:42 | ECGEPIP ---
Stationary ECG Study [facility] Test Date: 2016-09-22 Pat Name: JOHNNA RIVERO Department: Room: [place] [address] Gender: F [employer] Professor: : 1970 Requested By: DAHIANA PEDRAZA Order Number: [id number] Reading MD: Fabiano Hernandez Measurements Intervals [place] Rate: 127 P: 60 VA: 137 QRS: 48 QRSD: 64 T: 40 QT: 283 QTc: 413 Interpretive Statements Sinus tachycardia Slightly low voltages Marginal T-wave flattening Slightly more rapid rate than 09/19/16. Electronically Signed On 09-22-2016 20:42:06 EDT by Fabiano Hernandez
[2016-09-22] MEDS: VANCOMYCIN HCL 750 MG, VIAL MATE ADAPTER 1 EACH in D5W 250 ML IV SCH (20:43)
[2016-09-23] MEDS: ACETAMINOPHEN TAB 650MG DOSE (2X325MG) PO PRN (01:49)
[2016-09-23] MEDS: IPRATROPIUM 0.5MG/ALBUTEROL 2.5MG INH SOL UD 3ML (DUONEB)(J7620) NEB SCH ×3 (03:51→11:47)
[2016-09-23 04:00] VITALS: BP 115/69
[2016-09-23] MEDS: SLF 3 ML SYR IV SCH ×3 (04:55→20:56)
[2016-09-23] MEDS: HEPARIN SOD (PORCINE) 5000 UNITS/ML VIAL SC SCH ×3 (04:55→20:55)
[2016-09-23 05:41] LABS: MEAN CORPUSCULAR HEMOGLOBIN 27.9 pg (27.0-33.0); MEAN CORPUSCULAR HGB CONC 32.4 g/dl (32.0-36.5); MEAN CORPUSCULAR VOLUME 86.3 fl (80.0-96.0); PLATELET COUNT, AUTOMATED 339 k/mm3 (150-450); RED CELL DISTRIBUTION WIDTH 15.1 % (11.5-14.5); WHITE BLOOD COUNT 6.6 K/mm3 (4.0-10.0)
[2016-09-23 05:48] LABS: ALBUMIN/GLOBULIN RATIO 0.56 (1.00-1.93); ALKALINE PHOSPHATASE 131 U/L (45-117); ALT/SGPT 68 U/L (12-78); ANION GAP 8 MEQ/L (8-16); AST/SGOT 29 U/L (15-37); BILIRUBIN,DIRECT 0.1 MG/DL (0.0-0.2); BILIRUBIN,TOTAL 0.3 MG/DL (0.2-1.0); BLOOD UREA NITROGEN 11 MG/DL (7-18); CALCIUM LEVEL 7.6 MG/DL (8.5-10.1); CARBON DIOXIDE LEVEL 25 MEQ/L (21-32); CHLORIDE LEVEL 108 MEQ/L (98-107); CREATININE FOR GFR 0.29 MG/DL (0.55-1.02); GLOMERULAR FILTRATION RATE > 60.0 (>58); GLUCOSE, FASTING 160 MG/DL (70-105); SODIUM LEVEL 141 MEQ/L (136-145); TOTAL PROTEIN 5.6 GM/DL (6.4-8.2)
[2016-09-23 06:56] LABS: NUCLEATED RED BLOOD CELL 1 % (0-0)
[2016-09-23 06:57] LABS: ANISOCYTOSIS 1+
[2016-09-23 08:00] VITALS: BP 133/99
[2016-09-23] MEDS: guaiFENesin ER 600 MG TAB PO SCH ×2 (08:47→20:55)
[2016-09-23] MEDS: methylPREDNISolone INJ 125 MG/2 ML VIAL (J2930) IV SCH ×3 (08:47→23:58)
[2016-09-23] MEDS: VANCOMYCIN HCL 750 MG, VIAL MATE ADAPTER 1 EACH in D5W 250 ML IV SCH ×2 (08:48→20:55)
[2016-09-23] MEDS ORDERED: FUROSEMIDE 20 MG/2 ML VIAL (J1940) IV ONE (09:15)
[2016-09-23] MEDS ORDERED: POTASSIUM CHLORIDE 10 MEQ SR TABLET PO ONE (10:00)
--- NOTE | 2016-09-23 10:11 | REP ---
AP PORTABLE CHEST: 09/23/2016. Clinical history: Congestion. Dyspnea. Comparison: Portable chest 09/19/2016, CT chest 09/21/2016. Findings: Mandible obscures the lung apices. Low lung volumes. Even allowing for that, there is progression of the bilateral patchy and consolidative air space opacities. No gross effusion. Heart size not enlarged for this portable technique with low level of inflation. No other changes or findings. Impression: 1. Progression of the extensive bilateral patchy infiltrates. No gross effusion. Cardiomediastinal silhouette intact. Signed by Alfonso Meade MD 09/23/2016 08:19 P
[2016-09-23] MEDS: LevoFLOXacin IV 500 MG in APPROPRIATE DILUENT 1 EA IV SCH (10:45)
[2016-09-23] MEDS ORDERED: FUROSEMIDE 40 MG/4 ML VIAL (J1940) IV ONE (11:30)
[2016-09-23 12:00] VITALS: BP 134/76
[2016-09-23 12:02] LABS: ABG BASE EXCESS 3.4 (-2.0-2.0); ABG HCO3 26.6 MEQ/L (22.0-26.0); ABG PARTIAL PRESSURE CO2 35.6 mmHg (35.0-45.0); ABG PARTIAL PRESSURE O2 60.1 mmHg (75.0-100.0); ABG STANDARD HCO3 27.4 MEQ/L (22.0-26.0); ABG TOTAL CO2 27.7 MEQ/L (22.0-29.0); ABG pH (ARTERIAL) 7.491 UNITS (7.350-7.450)
[2016-09-23] MEDS ORDERED: LEVALBUTEROL 1.25 MG/0.5 ML CONCENTRATE NEB INH PRN (14:00)
[2016-09-23 16:00] VITALS: BP 132/74
[2016-09-23] MEDS ORDERED: FUROSEMIDE 40 MG/4 ML VIAL (J1940) IV SCH (17:00)
[2016-09-23 20:00] VITALS: BP 131/72
[2016-09-23] MEDS: LEVALBUTEROL 1.25 MG/0.5 ML CONCENTRATE NEB INH SCH (20:17)
[2016-09-23 23:59] VITALS: BP 133/67
[2016-09-24] MEDS: LEVALBUTEROL 1.25 MG/0.5 ML CONCENTRATE NEB INH SCH ×4 (01:35→20:55)
[2016-09-24] MEDS: ACETAMINOPHEN TAB 650MG DOSE (2X325MG) PO PRN (01:53)
[2016-09-24 04:00] VITALS: BP 139/91
[2016-09-24] MEDS: HEPARIN SOD (PORCINE) 5000 UNITS/ML VIAL SC SCH ×3 (05:21→22:58)
[2016-09-24] MEDS: SLF 3 ML SYR IV SCH ×3 (05:22→22:58)
--- NOTE | 2016-09-24 07:04 | CR ---
DATE OF CONSULTATION: 09/23/2016 PULMONARY CONSULTATION: The patient is a 46-year-old female seen for evaluation of respiratory status in light of pneumonia. She has a history of a mental impairment of unclear etiology. 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 Initially admitted following diarrhea and anorexia, she was felt dehydrated and given IV fluids, now diuresis has been started. 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 Her past pulmonary history is none. No history is obtained from the patient's family because she is unable to give meaningful answers to questions. Past medical history includes hip dysfunction, cataracts and mental impairment of unclear etiology. Review of systems was unable to be obtained. There is no family history of significant pulmonary disease that could be inheritable, and she has no respiratory risk factors. PHYSICAL EXAMINATION: Temperature is 98, pulse rate 136, respirations 20, blood pressure 136/67. She is able to answer in brief simple phrases. HEENT: Pupils are reactive. Oral mucosa is pink. Neck is supple. No meningismus. Jugular veins do appear somewhat distended. There is no stridor over the trachea. Heart sounds are regular, rapid breath sounds, diffuse wheeze in the expiratory phase only. Chest is symmetric, mildly increased in its AP diameter. There is no dullness to percussion. Abdomen is soft. No mass or organomegaly. Extremities are cool. Pulses are palpable. DIAGNOSTIC STUDIES: White cell count on admission was 4.6 with 51 neutrophils, 2 bands. Subsequent CBC did show the development of metamyelocytes and myelocytes. Today, CBC shows a white count of 6.6, hemoglobin 9.9, hematocrit 30.5. Platelet count is 339,000. On today's differential, the neutrophils are 82%, lymphocytes are 8, monocytes 6. She continues to show metamyelocytes and 1 nucleated red cell. The comments indicate basophilic stippling and anisocytosis. Electrolytes are sodium 141, potassium 3.0, chloride 108, CO2 25, BUN 11, creatinine 0.29, glucose 160, calcium is 7.6, but the albumin is 2, total protein 5.6, alkaline phosphatase 131. Brain natriuretic peptide was 162. Arterial blood gases showed a pH of 7.49, pCO2 35, pO2 60 on 2 liters of oxygen via nasal cannula. Chest x-ray on admission showed a pear shaped chest with no infiltrates. Subsequent chest x-ray today shows prominence in the interstitium, diffuse bilateral infiltrates. CT scan of the chest yesterday, though a suboptimal view, showed patchy infiltrates bilaterally in the periphery. MICROBIOLOGY STUDIES: A nasopharyngeal smear was positive for human metapneumovirus. IMPRESSION: 1. Hypoxemia. 1a: Component of which is related to fluid access. 1b: Possible viral pneumonia. 2. Tachycardia. 3. Neurologic dysfunction, possible leukomalacia. RECOMMENDATIONS: 1. I agree with scheduled IV Lasix and monitoring intake and output as well as daily date weights. 2. We will change her nebulized bronchodilator from albuterol with Atrovent to Xopenex to reduce tachycardia. 3. Continue with broad-spectrum antibiotics for the time being. 4. Additional testing may be considered to establish diagnosis of leukomalacia. Thank you for allowing me to consult in the care of this patient. If there are questions, please do not hesitated to contact me.
[2016-09-24 08:00] VITALS: BP 130/79
[2016-09-24 08:30] LABS: MEAN CORPUSCULAR HEMOGLOBIN 27.5 pg (27.0-33.0); MEAN CORPUSCULAR HGB CONC 31.5 g/dl (32.0-36.5); MEAN CORPUSCULAR VOLUME 87.3 fl (80.0-96.0); PLATELET COUNT, AUTOMATED 322 k/mm3 (150-450); RED CELL DISTRIBUTION WIDTH 15.1 % (11.5-14.5); WHITE BLOOD COUNT 4.6 K/mm3 (4.0-10.0)
[2016-09-24 08:58] LABS: ALBUMIN 2.2 GM/DL (3.2-5.2); ALBUMIN/GLOBULIN RATIO 0.63 (1.00-1.93); ALKALINE PHOSPHATASE 147 U/L (45-117); ALT/SGPT 109 U/L (12-78); ANION GAP 10 MEQ/L (8-16); AST/SGOT 81 U/L (15-37); BILIRUBIN,DIRECT 0.2 MG/DL (0.0-0.2); BILIRUBIN,TOTAL 0.3 MG/DL (0.2-1.0); BLOOD UREA NITROGEN 20 MG/DL (7-18); CALCIUM LEVEL 7.6 MG/DL (8.5-10.1); CARBON DIOXIDE LEVEL 30 MEQ/L (21-32); CHLORIDE LEVEL 103 MEQ/L (98-107); CREATININE FOR GFR 0.65 MG/DL (0.55-1.02); GLUCOSE, FASTING 158 MG/DL (70-105); POTASSIUM SERUM 3.3 MEQ/L (3.5-5.1); SODIUM LEVEL 143 MEQ/L (136-145); TOTAL PROTEIN 5.7 GM/DL (6.4-8.2)
--- NOTE | 2016-09-24 09:06 | REP ---
AP PORTABLE CHEST: 09/24/2016. Clinical history: Bilateral infiltrates. Comparison: 09/23/2016, 09/19/2016, CT chest 09/21/2016. Findings: There is a better level of inflation today. This gives some improvement in the appearance of the infiltrates which are more right-sided than left. The worse consolidations perihilar on the right with some air bronchograms. No gross effusion. Cardiomediastinal silhouette and airway intact. Impression: 1. Improved inflation with improvement in the appearance of the infiltrates on the left but with fairly extensive right perihilar consolidative opacity. No gross effusion or other changes. Signed by Alfonso Meade MD 09/24/2016 09:11 A
[2016-09-24] MEDS: VANCOMYCIN HCL 750 MG, VIAL MATE ADAPTER 1 EACH in D5W 250 ML IV SCH ×2 (09:17→20:38)
[2016-09-24] MEDS: methylPREDNISolone INJ 125 MG/2 ML VIAL (J2930) IV SCH ×3 (09:17→23:02)
[2016-09-24] MEDS: guaiFENesin ER 600 MG TAB PO SCH ×2 (09:17→20:39)
[2016-09-24 09:19] LABS: GLOMERULAR FILTRATION RATE > 60.0 (>58)
[2016-09-24] MEDS: FUROSEMIDE 40 MG/4 ML VIAL (J1940) IV SCH ×5 (09:20→23:11)
[2016-09-24 09:34] LABS: BANDS 2 % (< 11); NUCLEATED RED BLOOD CELL 3 % (0-0)
[2016-09-24 09:35] LABS: ANISOCYTOSIS 1+
--- NOTE | 2016-09-24 09:38 | PHACANCOPD ---
PHARMACY VANCOMYCIN DOSING Pt Demographics Demographics Patient Age:46 , Weight:50.200 , Gender: female Adjusted Body Weight Date: 09/22/16, Adjusted Body Weight: [48.2] Kg Events Past 24 Hours Events Past 24 Hours: YES: Change in CrCl, Diuretic Therapy (net negative lasix ), NO: Dialysis, Elevation in WBC, Fever, Other, Pending Diagnostics, Pending Procedures Vancomycin Vancomycin indication: sepsis Vancomycin Target Ranges: 15-20 mcg/ml Vancomycin Load Y/N: Yes Load Dose Date Time Vancomycin Load Dose: 1G Date: 09/22/16 Time: 0900 Vancomycin Dose Date: 09/22/16. Current Vancomycin Dose: [750mg IV Q12H] Intermittent Dosing?: No Labs Labs Item Value Date Time Blood Urea Nitrogen 20 MG/DL H # 09/24/16 0803 Creatinine 0.65 MG/DL # 09/24/16 0803 White Blood Count 10.3 K/mm3 H 09/22/16 0518 White Blood Count 6.6 K/mm3 09/23/16 0505 White Blood Count 4.6 K/mm3 09/24/16 0803 Creatinine 0.28 MG/DL L 09/22/16 0518 Creatinine 0.29 MG/DL L 09/23/16 0505 Vancomycin Level Trough 17.3 UG/ML 09/24/16 0803 Micro Microbiology 09/19/16 Blood Culture - Preliminary, Resulted No Growth after 72 hours. All specime... 09/19/16 Blood Culture - Preliminary, Resulted No Growth after 72 hours. All specime... 09/19/16 Respiratory Virus Panel (PCR) ([facility]) - Final, Complete Human Metapneumovirus 09/19/16 Urine Culture - Final, Complete Strep Gallolyticus Ssp Pasteu Creatinine Clearance Date:09/24/16. Creatinine Clearance: [~38.18 ml/min]. Date:09/22/16. Est Creatinine Clearance: ~[85ml/min]. Pending Labs Vancomycin trough scheduled 09/24/16 @ 0800, prior to the 5th dose Assessment and Plan Maintaining Current Dose?: Yes Reason for dose change: Change in serum Cr, No Dose Change Pharmacist Note Pharmacist Note Date: 09/24/16. Pharmacist note: vanco trough was drawn 1 hour prior to the 5th dose and came back at 17.3. SCr has significantly increased from yesterday, she was also started on net negative lasix yesterday. Blood cultures are NGTD, viral culture + for human metapneumovirus, urine grew strep gallolyticus (vanco [facility] = 0.5, resistant to levaquin). Pt remains on levaquin and vancomcyin therapy. We will continue to monitor renal function and order a repeat trough in 1-2 days. Date: 09/22/16. Pharmacist note: Day #1 empiric vancomycin initiated with a 1g loading dose, followed by a maintenance regimen of 750mg IV Q12H for the treatment of sepsis to be given with IV levaquin - aiming for a goal trough of 15-20mcg/ml. WBC and pulse are currently elevated, and patient has been mildly febrile within the past 24 hours. 09/21/[address] shows infiltrates in both lungs. No PMH of MRSA or vanco use here at [facility]. The patient's scr today of 0.28 is not reflective of true renal function, and output has not been able to be well documented due to incontinence. A vancomycin trough has been scheduled @0800, prior to the 5th dose. We will continue to monitor and make adjustments accordingly if needed. Waylon Hatfield Pharm.D. Sep 24, 2016 09:38
[2016-09-24] MEDS ORDERED: POTASSIUM CHLORIDE 10 MEQ SR TABLET PO ONE (10:00)
[2016-09-24] MEDS: LevoFLOXacin IV 500 MG in APPROPRIATE DILUENT 1 EA IV SCH (10:50)
[2016-09-24 12:00] VITALS: BP 129/84
--- NOTE | 2016-09-24 12:12 | ECHO ---
DATE OF PROCEDURE: 09/23/2016 REFERRING PHYSICIAN: Jas Rubio. INDICATION: Dyspnea. HEIGHT: 48 inches. WEIGHT: 114 pounds. DIMENSIONS: IVS: 0.7 LV: 3.3 LVPW: 0.7 LA: 2.4 Aorta: 2.4 Ascending aorta: 1.9 RV: 2.0 E velocity mitral inflow 76.5 cm/sec. E prime velocity in septal mitral annulus is 4.7 cm/sec and lateral annuls 10.0 cm/s. FINDINGS: The study is of acceptable technical quality. There are good parasternal views but very limited apical views and limited subcostal views. Of note, the patient is in sinus tachycardia with ventricular rate fluctuating between 120 and 130 beats per minute during the study. Left ventricle is of normal size and hyperdynamic contractility. I estimate ejection fraction (EF) around 65-70%. No segmental wall motion abnormalities are appreciated based on limited views. Right ventricle is normal size. Both atria appear normal. Aortic mitral, tricuspid and pulmonic valves all appear normal. No pericardial effusion is noted. Inferior vena cava is normal size. Aortic root is normal. Aortic arch and abdominal aorta were not well visualized. Doppler interrogation reveals no aortic stenosis or insufficiency. There is no mitral stenosis or insufficiency. No significant tricuspid disease is seen as well. There is trace pulmonic insufficiency. Mitral inflow pattern and tissue Doppler imaging of mitral annulus reveals grade 1 diastolic dysfunction. CONCLUSIONS: 1. Study is of acceptable technical quality even though apical and subcostal views are rather poor. 2. Normal LV size and systolic function, grade 1 diastolic dysfunction (in setting of sinus tachycardia with heart rate 120-130 bpm). 3. No significant valvular disease. 4. Normal central venous pressure. 5. Unable to estimate pulmonary artery pressure but nothing to suggest pulmonary hypertension. COMMENTS: Subacute bacterial endocarditis (SBE) prophylaxis is not recommended. Study does not provide obvious explanation for shortness of breath. MTDD
--- NOTE | 2016-09-24 13:17 | IPNPDOC ---
Text Note Date of Service The patient was seen on 09/23/16. NOTE Subjective: No acute changes overnight. Denies CP/SOB/Palpitations. Objective: Vitals: (see below) General: No acute distress, laying comfortably in bed. HEENT: Moist mucous membranes. Neck: No JVD or lymphadenopathy Cardiac: Tachycardic. Regular rhythm. No murmurs Pulm: Exp wheezing and rhonchi b/l. No stridor or use of accessory muscles. Abd: NT/ND + BS Ext: No edema or cyanosis. Strength 5/5 BUE. Unable to access strength of BLE as pt is not cooperating. Labs (see below) Images: CT Head 09/19/16 IMPRESSION: 1. Small vessel ischemic disease. 2. Mild volume loss. MRI Brain 09/19/16 IMPRESSION: There is diffuse increased signal intensity in the periventricular and subcortical white matter in the cerebral hemispheres. This may represent small vessel ischemic, metabolic or possibly dysmyelinating disease. MRI lumbar spine 09/19/16 IMPRESSION: Small disc protrusion at the L3-4 level with minimal thecal sac compression. Abd u/s 09/19/16 IMPRESSION: Essentially negative right upper quadrant ultrasound. Mild right renal atrophy. CT Chest 09/21/16 Impression: Multifocal confluent subsegmental infiltrates in all lobes of both lungs. These infiltrates are not visible on the comparison portable plain film study. Assessment/Plan 1. Metabolic encephalopathy 2/2 sepsis from CAP and viral illness. Improved. 2.Sepsis from CAP - multifocal (See CT chest above) - Started on Levaquin. Vancomycin added. Nebs/steroids/Robitussin. Chest x-ray worsening infiltrates- Dr. Rawls has been consulted. 3. Dehydration 2/2 #2 - patient has been well-hydrated. Discontinue IV fluids 4. ? CHF- Hussein was placed and patient is being diuresed with Lasix. We'll also follow-up with echocardiogram. 3. Transaminitis - trending down. Abd u/s negative. Cont to monitor. 4. ?RLE weakness. MRI Brain (see above). Unable to access strength as pt is not cooperating. PTeval. Appreciate neuro input- leukodystrophy. 5. Mental retardation since . 6. Disc herniation - physical therapy and pain control. Pain management recommending tramadol, however will discontinue this is the patient's the is being reported to be increasingly drowsy with this. Continue Tylenol as needed. DVT prophy: Hep SQ VS,Fishbone, I+O VS, Fishbone, I+O Laboratory Tests 09/24/16 08:03 Red Blood Count 3.52 L, Mean Corpuscular Volume 87.3, Mean Corpuscular Hemoglobin 27.5, Mean Corpuscular Hemoglobin Concent 31.5 L, Red Cell Distribution Width 15.1 H, Neutrophils (%) (Auto) , Lymphocytes (%) (Auto) , Monocytes (%) (Auto) , Eosinophils (%) (Auto) , Basophils (%) (Auto) , Neutrophils # (Auto) , Lymphocytes # (Auto) , Monocytes # (Auto) , Eosinophils # (Auto) , Basophils # (Auto) Vital Signs Date Time Temp Pulse Resp B/P Pulse Ox O2 Delivery O2 Flow Rate FiO2 09/24/16 12:00 98.1 109 18 129/84 96 Nasal Cannula 2.0 I&O- Last 24 Hours up to 6 AM 09/24/16 06:00 Intake Total 1215 ml Output Total 2075 ml Balance -860 ml DAHIANA PEDRAZA MD Sep 24, 2016 13:17
--- NOTE | 2016-09-24 13:17 | IPNPDOC ---
Text Note Date of Service The patient was seen on 09/24/16. NOTE Subjective: No acute changes overnight. Denies CP/Palpitations. Dyspnea is improving. Objective: Vitals: (see below) General: No acute distress, laying comfortably in bed. HEENT: Moist mucous membranes. Neck: No JVD or lymphadenopathy Cardiac: Tachycardic. Regular rhythm. No murmurs Pulm: Exp wheezing and rhonchi b/l. No stridor or use of accessory muscles. Abd: NT/ND + BS Ext: No edema or cyanosis. Strength 5/5 BUE. Unable to access strength of BLE as pt is not cooperating. Labs (see below) Images: CT Head 09/19/16 IMPRESSION: 1. Small vessel ischemic disease. 2. Mild volume loss. MRI Brain 09/19/16 IMPRESSION: There is diffuse increased signal intensity in the periventricular and subcortical white matter in the cerebral hemispheres. This may represent small vessel ischemic, metabolic or possibly dysmyelinating disease. MRI lumbar spine 09/19/16 IMPRESSION: Small disc protrusion at the L3-4 level with minimal thecal sac compression. Abd u/s 09/19/16 IMPRESSION: Essentially negative right upper quadrant ultrasound. Mild right renal atrophy. CT Chest 09/21/16 Impression: Multifocal confluent subsegmental infiltrates in all lobes of both lungs. These infiltrates are not visible on the comparison portable plain film study. Assessment/Plan 1. Metabolic encephalopathy 2/2 sepsis from CAP and viral illness. Improved. 2.Sepsis from CAP - multifocal (See CT chest above) - questionable viral versus bacterial pneumonia. Started on Levaquin/Vancomycin. Nebs/steroids/Robitussin. Chest x-ray worsening infiltrates- appreciate Dr. Rawls's input has. 3. Dehydration 2/2 #2 - patient has been well-hydrated. Discontinue IV fluids 4. ? CHF- Hussein was placed and patient is being diuresed with Lasix; Lasix increased to every 4 hours. Echocardiogram pending 3. Transaminitis - trending down. Abd u/s negative. Cont to monitor. 4. ?RLE weakness. MRI Brain (see above). Unable to access strength as pt is not cooperating. PTeval. Appreciate neuro input- leukodystrophy. 5. Mental retardation since . 6. Disc herniation - physical therapy and pain control. Pain management recommending tramadol, however will discontinue this is the patient's the is being reported to be increasingly drowsy with this. Continue Tylenol as needed. DVT prophy: Hep SQ VS,Fishbone, I+O VS, Fishbone, I+O Laboratory Tests 09/24/16 08:03 Red Blood Count 3.52 L, Mean Corpuscular Volume 87.3, Mean Corpuscular Hemoglobin 27.5, Mean Corpuscular Hemoglobin Concent 31.5 L, Red Cell Distribution Width 15.1 H, Neutrophils (%) (Auto) , Lymphocytes (%) (Auto) , Monocytes (%) (Auto) , Eosinophils (%) (Auto) , Basophils (%) (Auto) , Neutrophils # (Auto) , Lymphocytes # (Auto) , Monocytes # (Auto) , Eosinophils # (Auto) , Basophils # (Auto) Vital Signs Date Time Temp Pulse Resp B/P Pulse Ox O2 Delivery O2 Flow Rate FiO2 09/24/16 12:00 98.1 109 18 129/84 96 Nasal Cannula 2.0 I&O- Last 24 Hours up to 6 AM 09/24/16 06:00 Intake Total 1215 ml Output Total 2075 ml Balance -860 ml DAHIANA PEDRAZA MD Sep 24, 2016 13:17
[2016-09-24 16:00] VITALS: BP 130/83
[2016-09-24 19:59] VITALS: BP 128/68
--- NOTE | 2016-09-24 20:22 | ECGEPIP ---
Stationary ECG Study [facility] Test Date: 2016-09-23 Pat Name: JOHNNA RIVERO Department: Room: [place] [address] Gender: F [employer]: STEWART : 1970 Requested By: DAHIANA PEDRAZA Order Number: [id number] Reading MD: Michael Daigle Measurements Intervals [place] Rate: 111 P: 65 IL: 149 QRS: 59 QRSD: 63 T: 46 QT: 309 QTc: 420 Interpretive Statements SINUS TACHYCARDIA ABNORMAL RHYTHM ECG SIMILAR 09/22/16 INCLUDING TACHYCARDIA Electronically Signed On 09-24-2016 20:22:29 EDT by Michael Daigle
[2016-09-24 23:59] VITALS: BP 140/87
[2016-09-25] MEDS: LEVALBUTEROL 1.25 MG/0.5 ML CONCENTRATE NEB INH SCH ×4 (02:00→21:24)
[2016-09-25 04:45] VITALS: BP 160/83
[2016-09-25] MEDS: FUROSEMIDE 40 MG/4 ML VIAL (J1940) IV SCH ×4 (05:14→23:49)
[2016-09-25] MEDS: SLF 3 ML SYR IV SCH ×3 (05:17→21:13)
[2016-09-25] MEDS: HEPARIN SOD (PORCINE) 5000 UNITS/ML VIAL SC SCH ×3 (05:17→21:12)
[2016-09-25 06:19] LABS: MEAN CORPUSCULAR HEMOGLOBIN 27.4 pg (27.0-33.0); MEAN CORPUSCULAR HGB CONC 31.2 g/dl (32.0-36.5); MEAN CORPUSCULAR VOLUME 87.7 fl (80.0-96.0); PLATELET COUNT, AUTOMATED 346 k/mm3 (150-450); RED CELL DISTRIBUTION WIDTH 15.2 % (11.5-14.5); WHITE BLOOD COUNT 8.1 K/mm3 (4.0-10.0)
[2016-09-25 08:00] VITALS: BP 99/80
[2016-09-25 08:11] LABS: ANISOCYTOSIS 1+; BANDS 8 % (< 11); TOXIC VACUOLATION 1+
[2016-09-25 08:46] LABS: ANION GAP 12 MEQ/L (8-16); BLOOD UREA NITROGEN 21 MG/DL (7-18); CALCIUM LEVEL 8.4 MG/DL (8.5-10.1); CARBON DIOXIDE LEVEL 34 MEQ/L (21-32); CHLORIDE LEVEL 93 MEQ/L (98-107); CREATININE FOR GFR 0.92 MG/DL (0.55-1.02); GLOMERULAR FILTRATION RATE > 60.0 (>58); GLUCOSE, FASTING 175 MG/DL (70-105); POTASSIUM SERUM 3.3 MEQ/L (3.5-5.1); SODIUM LEVEL 139 MEQ/L (136-145)
[2016-09-25] MEDS: guaiFENesin ER 600 MG TAB PO SCH ×2 (09:07→21:12)
[2016-09-25] MEDS: methylPREDNISolone INJ 125 MG/2 ML VIAL (J2930) IV SCH ×3 (09:09→23:30)
[2016-09-25] MEDS: VANCOMYCIN HCL 750 MG, VIAL MATE ADAPTER 1 EACH in D5W 250 ML IV SCH (09:12)
--- NOTE | 2016-09-25 10:03 | REP ---
AP PORTABLE CHEST: 09/25/2016. Comparison: 09/24/2016, 09/23/2016. Clinical history: Congestion. Compared to yesterday's study, there is a lesser degree of inflation, but there remains improvement from the patchy perihilar infiltrates or atelectasis seen 2 days ago. No gross effusion. No keara edema. Cardiomediastinal silhouette and airway unchanged. Impression: 1. Some improvement in patchy infiltrates from 2 days ago, further improvement on the right compared to yesterday. Signed by Alfonso Meade MD 09/25/2016 05:10 P
[2016-09-25 12:00] VITALS: BP 152/72
[2016-09-25] MEDS: LevoFLOXacin 500 MG TABLET PO SCH (12:39)
--- NOTE | 2016-09-25 14:07 | IPNPDOC ---
Text Note Date of Service The patient was seen on 09/25/16. NOTE Subjective: No acute changes overnight. Pt feels better today. Objective: Vitals: (see below) General: No acute distress, laying comfortably in bed. HEENT: Moist mucous membranes. Neck: No JVD or lymphadenopathy Cardiac: Tachycardic. Regular rhythm. No murmurs Pulm: Wheezing and rhonchi b/l have improved. No stridor or use of accessory muscles. Abd: NT/ND + BS Ext: No edema or cyanosis. Strength 5/5 BUE. Unable to access strength of BLE as pt is not cooperating. Labs (see below) Images: CT Head 09/19/16 IMPRESSION: 1. Small vessel ischemic disease. 2. Mild volume loss. MRI Brain 09/19/16 IMPRESSION: There is diffuse increased signal intensity in the periventricular and subcortical white matter in the cerebral hemispheres. This may represent small vessel ischemic, metabolic or possibly dysmyelinating disease. MRI lumbar spine 09/19/16 IMPRESSION: Small disc protrusion at the L3-4 level with minimal thecal sac compression. Abd u/s 09/19/16 IMPRESSION: Essentially negative right upper quadrant ultrasound. Mild right renal atrophy. CT Chest 09/21/16 Impression: Multifocal confluent subsegmental infiltrates in all lobes of both lungs. These infiltrates are not visible on the comparison portable plain film study. Assessment/Plan 1. Metabolic encephalopathy 2/2 sepsis from CAP and viral illness. Improved. 2.Sepsis from CAP - multifocal (See CT chest above) - questionable viral versus bacterial pneumonia. Started on Levaquin/Vancomycin. Nebs/steroids/Robitussin. Chest x-ray worsening infiltrates- appreciate Dr. Rawls's input has. 3. Dehydration 2/2 #2 - patient has been well-hydrated. Discontinue IV fluids 4. ? CHF- s/p Hussein; patient is being diuresed with Lasix; Lasix increased to every 4 hours. Echocardiogram with stage 1 diastolic dysfunction 3. Transaminitis - trending down. Abd u/s negative. Cont to monitor. 4. ?RLE weakness. MRI Brain (see above). Unable to access strength as pt is not cooperating. PTeval. Appreciate neuro input- leukodystrophy. 5. Mental retardation since . 6. Disc herniation - physical therapy and pain control. Pain management recommending tramadol, however will discontinue this is the patient's the is being reported to be increasingly drowsy with this. Continue Tylenol as needed. DVT prophy: Hep SQ VS,Fishbone, I+O VS, Fishbone, I+O Laboratory Tests 09/25/16 05:16 Calcium Level 8.4 L, Red Blood Count 3.92 L, Mean Corpuscular Volume 87.7, Mean Corpuscular Hemoglobin 27.4, Mean Corpuscular Hemoglobin Concent 31.2 L, Red Cell Distribution Width 15.2 H, Neutrophils (%) (Auto) , Lymphocytes (%) (Auto) , Monocytes (%) (Auto) , Eosinophils (%) (Auto) , Basophils (%) (Auto) , Neutrophils # (Auto) , Lymphocytes # (Auto) , Monocytes # (Auto) , Eosinophils # (Auto) , Basophils # (Auto) Vital Signs Date Time Temp Pulse Resp B/P Pulse Ox O2 Delivery O2 Flow Rate FiO2 09/25/16 12:00 97.8 76 20 152/72 93 Nasal Cannula 2.0 I&O- Last 24 Hours up to 6 AM 09/25/16 06:00 Intake Total 540 ml Output Total 2100 ml Balance -1560 ml DAHIANA PEDRAZA MD Sep 25, 2016 14:07
[2016-09-25] MEDS ORDERED: POTASSIUM CHLORIDE 10 MEQ SR TABLET PO ONE (15:45)
[2016-09-25] MEDS ORDERED: POTASSIUM CHLORIDE 10% LIQ 20 MEQ/15 ML UDC PO ONE (16:15)
[2016-09-25 20:10] VITALS: BP 127/62
--- NOTE | 2016-09-25 21:11 | PHACANCOPD ---
PHARMACY VANCOMYCIN DOSING Pt Demographics Demographics Patient Age:46 , Weight:50.000 , Gender: female Adjusted Body Weight Date: 09/22/16, Adjusted Body Weight: [48.2] Kg Events Past 24 Hours Events Past 24 Hours: NO: Change in CrCl, Dialysis, Diuretic Therapy, Elevation in WBC, Fever, Other, Pending Diagnostics, Pending Procedures Vancomycin Vancomycin indication: sepsis Vancomycin Target Ranges: 15-20 mcg/ml Vancomycin Load Y/N: Yes Load Dose Date Time Vancomycin Load Dose: 1G Date: 09/22/16 Time: 0900 Vancomycin Dose Date: 09/22/16. Current Vancomycin Dose: [750mg IV Q12H] Intermittent Dosing?: No Labs Labs Item Value Date Time White Blood Count 8.1 K/mm3 09/25/16 0516 Creatinine 0.92 MG/DL 09/25/16 0516 Vancomycin Level Trough 34.5 UG/ML *H 09/25/16 194 Vital Signs Label Value Date Time Patient Temperature 98.8 degrees F 09/25/16 1600 Temperature Source Temporal 09/25/16 1600 Micro Microbiology 09/19/16 Blood Culture - Final, Complete NO GROWTH AFTER 5 DAYS 09/19/16 Blood Culture - Final, Complete NO GROWTH AFTER 5 DAYS 09/19/16 Respiratory Virus Panel (PCR) ([facility]IRA) - Final, Complete Human Metapneumovirus 09/19/16 Urine Culture - Final, Complete Strep Gallolyticus Ssp Pasteu Creatinine Clearance Date:09/24/16. Creatinine Clearance: [27] Pending Labs Vancomycin trough scheduled 09/27/16 @ 0800, Assessment and Plan Maintaining Current Dose?: No Reason for dose change: Trough too high Pharmacist Note Pharmacist Note Date: 09/24/16. Pharmacist note:Trough of 34.5 is above target range. Dose reduced to 750mg q24h. Trough ordered for 09-27 @0800. Will continue to monitor and make adjustments as needed. SUPA WONG [facility] Sep 25, 2016 21:11
[2016-09-25] MEDS ORDERED: VANCOMYCIN HCL 750 MG, VIAL MATE ADAPTER 1 EACH in D5W 250 ML IV SCH (21:15)
[2016-09-26] MEDS: LEVALBUTEROL 1.25 MG/0.5 ML CONCENTRATE NEB INH SCH ×4 (01:20→19:37)
[2016-09-26] MEDS: SLF 3 ML SYR IV SCH ×3 (05:06→21:31)
[2016-09-26] MEDS: LevoFLOXacin 500 MG TABLET PO SCH (05:06)
[2016-09-26] MEDS: HEPARIN SOD (PORCINE) 5000 UNITS/ML VIAL SC SCH ×3 (05:06→21:31)
[2016-09-26 06:00] VITALS: BP 119/61
[2016-09-26 06:32] LABS: MEAN CORPUSCULAR HEMOGLOBIN 27.6 pg (27.0-33.0); MEAN CORPUSCULAR HGB CONC 32.2 g/dl (32.0-36.5); MEAN CORPUSCULAR VOLUME 85.7 fl (80.0-96.0); PLATELET COUNT, AUTOMATED 359 k/mm3 (150-450); RED CELL DISTRIBUTION WIDTH 14.9 % (11.5-14.5); WHITE BLOOD COUNT 6.3 K/mm3 (4.0-10.0)
[2016-09-26 06:38] LABS: CALCIUM LEVEL 7.4 MG/DL (8.5-10.1); CREATININE FOR GFR 1.41 MG/DL (0.55-1.02); GLOMERULAR FILTRATION RATE 43.1 (>58); POTASSIUM SERUM 3.4 MEQ/L (3.5-5.1)
[2016-09-26 07:14] LABS: BANDS 4 % (< 11)
[2016-09-26 07:15] LABS: ANISOCYTOSIS 1+
[2016-09-26] MEDS ORDERED: VANCOMYCIN HCL 750 MG, VIAL MATE ADAPTER 1 EACH in D5W 250 ML IV SCH (09:00)
[2016-09-26] MEDS: methylPREDNISolone INJ 125 MG/2 ML VIAL (J2930) IV SCH (09:13)
[2016-09-26] MEDS: guaiFENesin ER 600 MG TAB PO SCH ×2 (09:14→21:30)
[2016-09-26] MEDS: FUROSEMIDE 40 MG/4 ML VIAL (J1940) IV SCH (11:51)
[2016-09-26 14:00] VITALS: BP 121/64
[2016-09-26] MEDS ORDERED: POTASSIUM CHLORIDE 10 MEQ SR TABLET PO ONE (14:30)
--- NOTE | 2016-09-26 15:02 | IPN ---
DATE: 09/26/2016 SUBJECTIVE: Patient is seen and examined in the room. Patient's sister and the caregiver are also present in the room. Patient starting to cough up some of the sputum. Still requiring oxygen support. No overnight events reported. No more recurrence of the fever. OBJECTIVE: VITAL SIGNS: Temperature 98, pulse 101, respirations 20, blood pressure 119/61, pulse oximetry 94% with 3 liters nasal cannula. GENERAL: Patient has mental retardation. No sign of acute distress. Patient is not oriented and patient is nonverbal. HEENT: Normocephalic, atraumatic. Extraocular motors grossly intact. CARDIOVASCULAR: Regular rate, positive S1, S2, intermittent tachycardia. RESPIRATORY: Still some rhonchi bilaterally. No wheezes can be appreciated. No accessory muscle use. ABDOMEN: Soft, nontender, nondistended. Bowel sounds present. No rebound. No guarding. EXTREMITIES: No edema. No sign of cyanosis. LABORATORY DATA: WBC 6.3, hemoglobin 10.5, hematocrit 32.7, platelet count 359. Sodium 138, potassium 3.4, chloride 91, carbon dioxide 39, BUN 45, creatinine 1.41, GFR 43.1, fasting glucose 170, calcium 7.4, C-reactive protein 2.12. ASSESSMENT AND PLAN: 1. Sepsis from community-acquired pneumonia. Patient has been getting vancomycin and Levaquin. Patient is also on nebulizers. Patient is also on steroids. At this moment, patient still has respiratory symptoms. Will continue current vancomycin and Levaquin. Patient has been on Levaquin 500 mg. The recommended treatment therapy duration is 10-14 days. Will taper down patient's prednisone. Patient is currently still requiring oxygen support. Will wean patient off oxygen if tolerated. Patient's C-reactive protein (CRP) is improving. Will continue to monitor. 2. Metabolic encephalopathy secondary to sepsis from community-acquired pneumonia and viral illness. Per patient's family member, patient's mentation is improving. Patient has baseline mental retardation. 3. Diastolic congestive heart failure exacerbation. Patient was on Lasix diuresis. Patient has been having negative fluid output in the last 2-3 days. Currently patient started to develop acute kidney injury (CHERI). Will discontinue the Lasix. Will continue to monitor. 4. Hypokalemia. Patient will have potassium supplement. Will discontinue the Lasix. 5. Questionable right lower extremity weakness. Unable to assess strength because patient is not able to follow commands. 6. Mental retardation since . Patient's mental status is approaching patient's baseline per her caregiver. 7. History of disc herniation. Continue with physical therapy with pain control. 8. UTI. improving 9. Deep venous thrombosis (DVT) prophylaxis. Patient is on heparin. MTDD
[2016-09-26] MEDS: predniSONE 20 MG TAB PO SCH (21:30)
[2016-09-26 22:00] VITALS: BP 125/55
[2016-09-27] MEDS: LEVALBUTEROL 1.25 MG/0.5 ML CONCENTRATE NEB INH SCH ×4 (02:17→20:27)
[2016-09-27] MEDS: LevoFLOXacin 500 MG TABLET PO SCH (05:17)
[2016-09-27] MEDS: SLF 3 ML SYR IV SCH ×3 (05:17→21:35)
[2016-09-27] MEDS: HEPARIN SOD (PORCINE) 5000 UNITS/ML VIAL SC SCH ×3 (05:17→21:35)
[2016-09-27 06:21] LABS: MEAN CORPUSCULAR HEMOGLOBIN 27.1 pg (27.0-33.0); MEAN CORPUSCULAR HGB CONC 31.3 g/dl (32.0-36.5); MEAN CORPUSCULAR VOLUME 86.7 fl (80.0-96.0); PLATELET COUNT, AUTOMATED 360 k/mm3 (150-450); RED CELL DISTRIBUTION WIDTH 15.1 % (11.5-14.5); WHITE BLOOD COUNT 5.2 K/mm3 (4.0-10.0)
[2016-09-27 06:29] LABS: CREATININE FOR GFR 1.21 MG/DL (0.55-1.02); GLOMERULAR FILTRATION RATE 51.5 (>58); POTASSIUM SERUM 3.7 MEQ/L (3.5-5.1)
[2016-09-27 06:57] LABS: BANDS 6 % (< 11)
[2016-09-27] MEDS: predniSONE 20 MG TAB PO SCH (09:22)
[2016-09-27] MEDS: guaiFENesin ER 600 MG TAB PO SCH ×2 (09:22→20:58)
[2016-09-27 14:00] VITALS: BP 131/57
--- NOTE | 2016-09-27 16:58 | IPN ---
DATE: 09/27/2016 SUBJECTIVE: Patient is seen and examined in the room with patient's brother present. Patient continues to be nonverbal, not able to follow commands. Per patient's family member, patient's breathing shows significant improvement in the past few days. Still has intermittent cough. No overnight events reported. OBJECTIVE: VITAL SIGNS: Temperature 98.3, pulse 125, respiration rate 18, blood pressure 131/57, pulse oximetry 95% with 2 liters nasal cannula. GENERAL: No sign of acute distress. Patient has mental retardation, not able to follow commands, and patient is minimally verbal, unable to assess orientation. HEENT: Normocephalic, atraumatic. Extraocular motors grossly intact. CARDIOVASCULAR: Regular rate, positive S1, S2, positive tachycardia. RESPIRATORY: I cannot appreciate significant rhonchi. No wheezes. No accessory muscle use. ABDOMEN: Soft, nontender, nondistended. Bowel sounds present. No rebound. No guarding. EXTREMITIES: No edema. No sign of cyanosis. LABORATORY DATA: WBC 5.2, hemoglobin 10.7, hematocrit 34.1, platelet count 360. Sodium 138, potassium 3.7, chloride 95, carbon dioxide 37, BUN 52, creatinine 1.21, GFR 51.5, fasting glucose 178, calcium 8, C-reactive protein 1.7. ASSESSMENT AND PLAN: 1. Sepsis from community-acquired pneumonia and Human metapneumovirus. Patient finished her course of vancomycin. Currently patient is on Levaquin. Patient has nebulizer as needed. Patient is on steroid taper. Patient C-reactive protein (CRP) is improving. However, patient still requires oxygen intermittently. Will try to wean off the oxygen as tolerated. 2. Metabolic encephalopathy, secondary to sepsis. 3. Human metapneumovirus. Continue current medical management. 4. Diastolic congestive heart failure exacerbation. Patient had a course of Lasix diuresis and currently patient had acute kidney injury from overdiuresis. Diuretic has been discontinued on 09/26/2016. Currently patient does not show any sign of fluid overload. 5. Hypokalemia. Lasix has been discontinued. Patient is receiving supplement of potassium. Currently potassium is within normal range. 6. Mental retardation since . Per patient's family, patient's condition is approaching patient's baseline. 7. History of disc herniation. Continue with pain control. 8. acute diastolic CHF, continue to monitor fluid status. 9. UTI. improving 8. Deep venous thrombosis (DVT) prophylaxis. Patient is on heparin. MTDD
[2016-09-28] MEDS: LEVALBUTEROL 1.25 MG/0.5 ML CONCENTRATE NEB INH SCH ×4 (01:15→20:05)
[2016-09-28 06:00] VITALS: BP 122/54
[2016-09-28 06:21] LABS: MEAN CORPUSCULAR HEMOGLOBIN 27.4 pg (27.0-33.0); MEAN CORPUSCULAR HGB CONC 31.5 g/dl (32.0-36.5); MEAN CORPUSCULAR VOLUME 86.9 fl (80.0-96.0); PLATELET COUNT, AUTOMATED 333 k/mm3 (150-450); RED CELL DISTRIBUTION WIDTH 14.9 % (11.5-14.5); WHITE BLOOD COUNT 4.8 K/mm3 (4.0-10.0)
[2016-09-28 06:29] LABS: ANION GAP 7 MEQ/L (8-16); BLOOD UREA NITROGEN 44 MG/DL (7-18); CALCIUM LEVEL 8.3 MG/DL (8.5-10.1); CARBON DIOXIDE LEVEL 35 MEQ/L (21-32); CHLORIDE LEVEL 100 MEQ/L (98-107); CREATININE FOR GFR 0.99 MG/DL (0.55-1.02); GLOMERULAR FILTRATION RATE > 60.0 (>58); GLUCOSE, FASTING 112 MG/DL (70-105); POTASSIUM SERUM 3.9 MEQ/L (3.5-5.1); SODIUM LEVEL 142 MEQ/L (136-145)
[2016-09-28] MEDS: LevoFLOXacin 500 MG TABLET PO SCH (06:31)
[2016-09-28] MEDS: SLF 3 ML SYR IV SCH ×3 (06:31→21:26)
[2016-09-28] MEDS: HEPARIN SOD (PORCINE) 5000 UNITS/ML VIAL SC SCH ×3 (06:31→21:25)
[2016-09-28 06:56] LABS: BANDS 3 % (< 11)
[2016-09-28] MEDS ORDERED: predniSONE 20 MG TAB PO SCH (09:00)
[2016-09-28] MEDS: guaiFENesin ER 600 MG TAB PO SCH ×2 (09:42→21:25)
[2016-09-28 14:00] VITALS: BP 113/61
--- NOTE | 2016-09-28 17:59 | IPN ---
DATE: 09/28/2016 SUBJECTIVE: The patient was seen and examined in the room today. The patient's brother is also present in the room. The patient's breathing continues to improve; however, the patient still requires oxygen support but still having intermittent cough. But per family member, the patient's breathing continues to show improvement. No overnight events reported. OBJECTIVE: VITAL SIGNS: Temperature is 98.2, pulse is 101, respirations 18, blood pressure is 122/54, pulse oximetry is 91% with one liter nasal cannula. GENERAL: No sign of acute distress. The patient is alert and awake but is not oriented due to mental retardation. The patient is not able to follow commands. The patient is minimally verbal. HEENT: Normocephalic, atraumatic. Extraocular motor grossly intact. CARDIOVASCULAR: Positive S1, S2, regular rate. Positive tachycardia. RESPIRATORY: Still has some rhonchi and minimal wheezes. No accessory muscle use. ABDOMEN: Soft, nontender, nondistended. Bowel sounds present. No rebound, no guarding. EXTREMITIES: No edema, no sign of cyanosis. LABORATORY DATA: WBC is 4.8, hemoglobin 10.3, hematocrit 32.8, platelet count is 333. Sodium is 142, potassium 3.9, chloride is 100, carbon dioxide of 35, BUN 44, creatinine is 0.99, GFR is greater than 60, fasting glucose 112, calcium is 8.3, C-reactive protein is 1.12. ASSESSMENT AND PLAN: 1. Sepsis from community-acquired pneumonia and Human metapneumovirus and UTI. The patient finished a course of vancomycin. The patient is continuing on the Levaquin. Currently, the patient is on a steroid taper. The C-reactive protein is continuing to improve; however, the patient is still requiring oxygen intermittently. Will try to titrate the patient off the oxygen. 2. Metabolic encephalopathy secondary to sepsis, improving. According to the patient's family member, the patient's mentation is approaching her baseline. 3. Human metapneumovirus. Continue supportive care. 4. Diastolic congestive heart failure exacerbation. The patient had fluid overload, and the patient had a course of Lasix diuresis, but the patient started having signs of dehydration. For that reason, it was discontinued since September, and since discontinuing the Lasix, the patient's renal function is improving. Currently, the patient does not have a sign of fluid overload. 5. Acute kidney injury secondary to Lasix diuresis. Since discontinuing Lasix, the patient's renal function returned to baseline, which is in the normal range. 6. Mental retardation since . The patient's mentation is approaching baseline. 7. History of disc herniation. Continue pain control. 8. Deep vein thrombosis (DVT) prophylaxis. Continue heparin. 9. Acute diastolic CHF, improving DISPOSITION: The patient's condition is improving. I had a chance to talk with the patient's caregiver, her brother, Mr. Rushing, phone number [phone]. The patient's condition is approaching baseline. However, the patient still requires intermittent oxygen support. Will try to titrate the patient off the oxygen. We will reevaluate the patient tomorrow morning. If the patient is still requiring oxygen support, we will supply portable oxygen for home use temporarily, but we anticipate discharging the patient in the next 24 hours. FELIX
[2016-09-28 20:40] VITALS: BP 132/84
[2016-09-29] MEDS: LEVALBUTEROL 1.25 MG/0.5 ML CONCENTRATE NEB INH SCH ×3 (02:01→13:08)
[2016-09-29] MEDS: HEPARIN SOD (PORCINE) 5000 UNITS/ML VIAL SC SCH (05:24)
[2016-09-29] MEDS: LevoFLOXacin 500 MG TABLET PO SCH (05:24)
[2016-09-29 05:25] VITALS: BP 117/60
[2016-09-29] MEDS: SLF 3 ML SYR IV SCH (05:25)
[2016-09-29 06:30] LABS: MEAN CORPUSCULAR VOLUME 87.5 fl (80.0-96.0); PLATELET COUNT, AUTOMATED 341 k/mm3 (150-450); WHITE BLOOD COUNT 11.9 K/mm3 (4.0-10.0)
[2016-09-29 06:47] LABS: ANION GAP 7 MEQ/L (8-16); BLOOD UREA NITROGEN 42 MG/DL (7-18); CALCIUM LEVEL 8.7 MG/DL (8.5-10.1); CARBON DIOXIDE LEVEL 32 MEQ/L (21-32); CHLORIDE LEVEL 102 MEQ/L (98-107); CREATININE FOR GFR 0.81 MG/DL (0.55-1.02); GLOMERULAR FILTRATION RATE > 60.0 (>58); GLUCOSE, FASTING 96 MG/DL (70-105); POTASSIUM SERUM 3.5 MEQ/L (3.5-5.1); SODIUM LEVEL 141 MEQ/L (136-145)
[2016-09-29 06:56] LABS: BANDS 2 % (< 11)
[2016-09-29 06:58] LABS: ANISOCYTOSIS 1+
[2016-09-29] MEDS ORDERED: predniSONE 10 MG TAB PO SCH (09:00)
[2016-09-29] MEDS: guaiFENesin ER 600 MG TAB PO SCH (10:03)
[2016-09-29 10:11] LABS: BASO % 0.4 % (0.0-1.0); EOS # 0.1 K/mm3 (0.0-0.50); EOS % 0.6 % (0.0-3.0); LARGE UNSTAINED CELL # 0.2 K/mm3 (0.0-0.4); LARGE UNSTAINED CELL % 1.3 % (0.0-4.0); LYMPH # 1.2 K/mm3 (1.5-4.5); LYMPH % 7.7 % (24.0-44.0); MEAN CORPUSCULAR HEMOGLOBIN 27.3 pg (27.0-33.0); MEAN CORPUSCULAR HGB CONC 31.2 g/dl (32.0-36.5); MEAN CORPUSCULAR VOLUME 87.5 fl (80.0-96.0); MONO # 0.7 K/mm3 (0.0-0.8); MONO % 5.1 % (0.0-5.0); NEUTROPHILS # 10.9 K/mm3 (1.8-7.7); NEUTROPHILS % 84.7 % (36.0-66.0); PLATELET COUNT, AUTOMATED 370 k/mm3 (150-450); RED CELL DISTRIBUTION WIDTH 14.9 % (11.5-14.5); WHITE BLOOD COUNT 12.8 K/mm3 (4.0-10.0)
[2016-09-29] MEDS ORDERED: ACET65TA PO (12:55)
[2016-09-29] MEDS ORDERED: GUAI60TA PO (12:55)
[2016-09-29] MEDS ORDERED: GUAIDM5UD PO (12:55)
--- NOTE | 2016-09-29 13:28 | CR ---
DATE OF CONSULTATION: 09/29/2016 CONSULTING PHYSICIAN: Dr. Gomez [employer] DRIVER: Dr. Patel REASON FOR CONSULTATION: Worsening infection. CHIEF COMPLAINT: Cough, shortness of breath. HISTORY OF PRESENT ILLNESS: 46-year-old female with past medical history of mental retardation since , vitamin D deficiency, who presented on 2016 for altered mental status, has been in the hospital for the past 10 days and received vancomycin since 09/22/2016 and was discontinued on 09/26/2016. The patient also received Levaquin from 09/21 to 09/24/2016 and was switched to oral Levaquin from 09/25 to 09/29/2016. The patient was improving and she has been weaned off from nasal cannula oxygen. The patient was going to be discharged today; however, she had an elevation of white count from 4.8 to 11.9 and a repeat white count shows WBC of 12.8. She also had elevation of C-reactive protein from 1.12 to 10.4; however, per patient's [id number], the patient had a choking event yesterday where she choked on a pill. She also has a new rash on her back. Otherwise, interviewing patient did not produce any fruitful result due to the patient was mentally retarded and could not give us much information; however, she was pleasant and does not appear to be in distress. Was able to make simple conversation; however, she does not follow commands. ALLERGIES: She is allergic to SULFA antibiotics, which has unknown side effect. HOME MEDICATIONS: The patient does not take any medications at home. Currently in the hospital, the patient takes: - Tylenol 650 mg one tablet by mouth every 8 hours as needed - guaifenesin 600 mg one tablet by mouth twice a day - Robitussin 5 mL by mouth every four hours as needed - heparin 5000 units subcutaneously every 8 hours - Xopenex 1.25 mg inhalation every 2 hours as needed - Xopenex 1.25 mg inhalation every 6 hours - Levaquin 500 mg one tablet by mouth daily - Zofran 4 mg IV every 6 hours as needed - prednisone 10 mg, 30 mg one tablet by mouth daily PAST MEDICAL HISTORY: 1. Mental retardation. 2. Vitamin D deficiency. 3. Grade 1 diastolic heart failure, recently diagnosed. 4. Hypoxia during this admission. 5. 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 PAST SURGICAL HISTORY: 1. Bilateral hip replacement. 2. Bilateral cataract repair. FAMILY HISTORY: Noncontributory. SOCIAL HISTORY: The patient does not smoke, drink or use any recreational drugs. The patient lives at home with her brother and [id number]. The patient was cared for by her mother, who has . The patient does go out to adult day care at [facility]. REVIEW OF SYSTEMS: Could not be obtained due to the patient does not answer questions or follow commands. Caregiver denies patient has any nausea or vomiting. Denies any chest pain. Admits to chronic back pain. Admits to patient's symptoms have been improving. PHYSICAL EXAMINATION: VITAL SIGNS: Temperature 97.7, pulse 101, respirations 18, blood pressure 170/60, oxygen saturation 93% on 1 liter nasal cannula. GENERAL: The patient is a mentally retarded, middle aged female whom does not answer questions appropriately. Acted like a child and does not know her age. Was sitting up in her wheelchair. HEENT: Normocephalic, atraumatic. Extraocular motors intact. Mucous membranes moist. Neck is supple. No neck lymphadenopathy. CARDIOVASCULAR: Tachycardic. S1, S2. No murmur, rubs or gallops. LUNGS: Slight wheezing bilaterally. ABDOMEN: Positive bowel sounds. Soft, nontender, nondistended. EXTREMITIES: Trace nonpitting edema bilaterally. SKIN: Warm and dry. NEUROLOGIC: Could not be assessed due to the patient does not follow commands. LABORATORY DATA: WBC 12.8, hemoglobin 10.6, hematocrit 34 with a platelet count of 370 and MCV of 87.5. Sodium 141, potassium 3.5, chloride 102, bicarbonate 32, BUN 42, creatinine 0.81 , GFR greater than 60, fasting glucose 96, lactic acid 1.5, calcium 8.7, C- reactive protein was 10.4, elevated from the day prior at 1.12. The patient's repeat urine culture/urinalysis are pending. The patient had a CT of the chest done this morning. Official result is pending. The patient did have a rash on her back, which was macular like, roughly 20 cm x 30 cm in the mid back. No drainage. Was not painful to palpation. Dr. Patel has reviewed the result with Dr. Arrington at radiology and found that the patient's patchy infiltrates bilaterally were improved compared to a CT of the chest from 09/21/2016. ASSESSMENT AND PLAN: 46-year-old female with past medical history of mental retardation who presented with altered mental status and sepsis from community-acquired pneumonia, likely viral, due to human metapneumovirus. The patient completed a course of vancomycin. Currently on Levaquin. The patient did have an elevation of white count and C-reactive protein, which was likely reactive. At this point, the elevation of white count and C-reactive protein are less likely infectious. We will stop the patient's Levaquin at this point due the patient likely had a vital infection. In addition, the patient has been titrated off oxygen. At this point, from infectious disease standpoint, the patient may be discharged and followup with the clinic in 1 week with blood work, if the patient's urinalysis and urine culture come back negative. The patient has been discussed with attending doctor, Dr. Patel. My preceptor for this patient encounter was Dr. Patel. The preceptor was physically present in the building during the encounter and was fully available. As needed, all aspects of the patient interview, examination, medical decision making process, and medical care plan development were reviewed and approved by the preceptor. The preceptor is aware and concurs with the plan as stated in the body of this note and will attest to such by his/her cosignature. FELIX
--- NOTE | 2016-09-29 13:33 | REP ---
Portable chest x-ray: Single view. History: Worsening infection. Comparison study September 25, 2016. Findings: The lungs are symmetrically aerated. No focal infiltrate is seen. Cardiomediastinal silhouette is unremarkable. No bony abnormality seen. Impression: No acute disease. Signed by Taras Arrington MD 09/29/2016 01:24 P
--- NOTE | 2016-09-29 13:55 | REP ---
Chest CT without contrast: History: Worsening infection. Comparison chest CT is from September 21, 2016. The patient has history of metapneumovirus pneumonia. CT findings: In comparison with the study from September 21, 2016. The pulmonary parenchymal opacification pattern is much improved although not resolved. There are multifocal areas of central lobular nodule and linear subsegmental plate-like atelectasis bilaterally in the upper and lower lung zones consistent with some residual consolidation. This is much less extensive than on the prior study. No pleural effusion is seen. No hilar or mediastinal adenopathy is apparent. Visualized upper abdominal structures are unremarkable. No bony abnormality is seen. Impression: Radiographically improving bilateral pneumonia. Signed by Taras Arrington MD 09/29/2016 03:13 P
--- NOTE | 2016-09-30 19:10 | DSES ---
DATE OF ADMISSION: 09/19/2016 DATE OF DISCHARGE: 09/29/2016 CONSULTANTS: Pain management. NEUROLOGIST: Dr. Kaba [facility] PRACTITIONER: Dr. Rawls INFECTIOUS DISEASE: David Kamille Patel PROCEDURE: None. COMPLICATIONS: None. ADMISSION/DISCHARGE DIAGNOSES: 1. Sepsis from community acquired pneumonia and human metapneumovirus and UTI 2. Community acquired pneumonia. 3. Human metapneumovirus infection. 4. Metabolic encephalopathy secondary to sepsis. 5. Acute Diastolic congestive heart failure exacerbation. 6. Acute kidney injury. 7. Mental retardation since . 8. History of disk herniation. 9. Urine tract infection HOSPITALIZATION COURSE: Patient is a 46-year-old male who presented to [facility] 09/19/2016 with worsening of mental status change with right leg weakness. Later, the urine culture came back positive for Streptococcus gallolyticus urinary tract infection (UTI), and respiratory panel came back positive for human metapneumovirus. Then patient was started on conservative medical management. Then neurologist was consulted for patient's worsening altered mental status, and pain management was consulted for patient's worsening pain. Later, CT of the chest was performed, and there were some findings to suggest multifocal community acquired pneumonia, and patient was started on antibiotics. With antibiotic treatments, patient's C-reactive protein continued to improve, and patient's breathing also showed persistent improvement. Patient' s oxygen was able to be titrated off from 3 liters nasal cannula to intermittent 1 liter nasal cannula. During the hospitalization stay, patient showed some sign of fluid overload, and Lasix diuresis was started; however, later patient started having acute kidney injury from over-diuresis, and Lasix diuresis was on hold. Kidney function showed improvement with Lasix discontinuation. On 09/29/2016, patient had a sudden rise of white blood cells (WBC) and C-reactive protein (CRP). Due to concern for worsening infection, such as aspiration, CT of the chest was performed, and urinalysis (UA) and urine culture were ordered. Infectious disease specialist was consulted, and it was determined that patient does not have acute worsening infection, and the patient was determined to be stable for discharge on 09/29/2016. OBJECTIVE: VITAL SIGNS: Temperature is 97.7, pulse is 101, respiration rate is 18, blood pressure is 117/60, pulse oximetry is 93% with 1 liter nasal cannula. LABORATORY DATA: WBC is 11.9, hemoglobin 10.4, hematocrit 32.7, platelet count is 341. Sodium is 141, potassium 3.5, chloride is 102, carbon dioxide 32, BUN 42, creatinine 0.81, GFR greater than 60, fasting glucose 96, calcium 8.7, C- reactive protein 10.4. Microbiology: Urine culture shows Streptococcus gallolyticus. Respiratory panel showed human metapneumovirus. Blood cultures negative after 5 days. IMAGING STUDY: Chest x-ray on 09/19/2016 showed no acute infiltrate. CT of the head without contrast showed small-vessel ischemic disease. Mild volume loss. MRI of the brain without contrast on 09/19/2016 showed diffuse increased signal intensity in the periventricular and subcortical white matter in the cerebral hemisphere. This may represent small-vessel ischemic metastatic or possible dysmyelinating disease. Gallbladder ultrasound on 09/20/2016 showed essential negative right upper quadrant ultrasound. Mild right renal atrophy. CT of the chest without contrast on 09/21/2016 showed multifocal confluent subsegmental infiltrate in all the lobes of the both lungs. Those infiltrates are not visible on the comparison portal plain film study. Chest x-ray on 09/29/2016 showed no acute disease. CT of the chest without contrast on 09/29/2016 showed improving bilateral pneumonia. DISCHARGE MEDICATIONS: - Tylenol 650 mg by mouth every 8 hours as needed - Mucinex 600 mg by mouth twice a day - guaifenesin/dextromethorphan 5 mL by mouth every 4 hours as needed for cough DISCHARGE INSTRUCTIONS: Discontinue line, discharge home. Activity as tolerated. Diet as tolerated. Patient should followup with her primary care provider within 1 week. Patient should be on aspiration precautions. DISCHARGE CONDITION: Stable. DISCHARGE TIME: Greater than 30 minutes. MTDD
== END 2016-09-29 14:02 | disposition home or self-care (01) | DRG 871 ==
LOC: M ED 12:57 → M ED INP 14:50 → M MSPAV 17:17 → M PCU 09-21 14:41 → M MSPAV 09-25 20:05
PROVIDERS: ADMIT General Practice; ATTEND Internal Medicine
DX: A41.9 Sepsis, unspecified organism (principal); G93.41 Metabolic encephalopathy; J12.3 Human metapneumovirus pneumonia; I50.33 Acute on chronic diastolic (congestive) heart failure; E75.29 Other sphingolipidosis; N17.9 Acute kidney failure, unspecified; N39.0 Urinary tract infection, site not specified; E55.9 Vitamin D deficiency, unspecified; B95.5 Unspecified streptococcus as the cause of diseases classified elsewhere; M51.26 Other intervertebral disc displacement, lumbar region; R74.0 Nonspecific elevation of levels of transaminase and lactic acid dehydrogenase [LDH]; R09.02 Hypoxemia; E87.6 Hypokalemia; E88.1 Lipodystrophy, not elsewhere classified; F45.8 Other somatoform disorders; R19.7 Diarrhea, unspecified; M08.00 Unspecified juvenile rheumatoid arthritis of unspecified site; G57.91 Unspecified mononeuropathy of right lower limb; J20.9 Acute bronchitis, unspecified; F79 Unspecified intellectual disabilities; E86.0 Dehydration; Z88.2 Allergy status to sulfonamides; Z96.643 Presence of artificial hip joint, bilateral

== ENCOUNTER → 2016-10-16 | Outpatient (CLI) | payer MEDICARE, MEDICAID ==
[~2016-10-16] MED LIST: ACET65TA PO; GUAI60TA PO; GUAIDM5UD PO
--- NOTE | 2016-10-16 09:42 | REP ---
Chest two views HISTORY: Pneumonia Comparison: 09/29/2016 The lungs are clear. The heart is normal in size. The pulmonary vasculature is normal in appearance. The bony structure is intact. IMPRESSION: No acute disease. Signed by Fco Masterson MD 10/16/2016 09:33 A
== END ==
LOC: M RAD 08:58
DX: J12.3 Human metapneumovirus pneumonia (principal)

== ENCOUNTER → 2018-07-11 | Outpatient (CLI) | payer MEDICARE, MEDICAID ==
[~2018-07-11] MED LIST changes: -ACET65TA PO; -GUAI60TA PO; +MAPA325T3 PO; +MUCI600T31 PO
[2018-07-11 10:46] LABS: EOS % 0.5 % (0.0-3.0); HEMATOCRIT 35.5 % (36.0-47.0); HEMOGLOBIN 11.6 g/dl (12.0-15.5); LYMPH # 1.7 10^3/uL (1.5-4.5); LYMPH % 39.9 % (24.0-44.0); MEAN CORPUSCULAR HEMOGLOBIN 28.4 pg (27.0-33.0); MEAN CORPUSCULAR HGB CONC 32.7 g/dl (32.0-36.5); MEAN CORPUSCULAR VOLUME 86.8 fl (80.0-96.0); MONO # 1.2 10^3/uL (0.0-0.8); MONO % 29.1 % (0.0-5.0); NEUTROPHILS # 1.3 10^3/uL (1.8-7.7); NEUTROPHILS % 29.8 % (36.0-66.0); PLATELET COUNT, AUTOMATED 359 10^3/uL (150-450); RED BLOOD COUNT 4.09 10^6/uL (4.00-5.40); WHITE BLOOD COUNT 4.3 10^3/uL (4.0-10.0)
[2018-07-11 11:02] LABS: ALBUMIN 2.6 GM/DL (3.2-5.2); ALT/SGPT 114 U/L (12-78); BILIRUBIN,TOTAL 0.5 MG/DL (0.2-1.0); BLOOD UREA NITROGEN 17 MG/DL (7-18); CALCIUM LEVEL 8.6 MG/DL (8.5-10.1); CARBON DIOXIDE LEVEL 28 MEQ/L (21-32); CHLORIDE LEVEL 100 MEQ/L (98-107); CREATININE FOR GFR 0.43 MG/DL (0.55-1.30); GLOMERULAR FILTRATION RATE > 60.0 (>58); GLUCOSE, FASTING 98 MG/DL (70-100); POTASSIUM SERUM 4.6 MEQ/L (3.5-5.1); SODIUM LEVEL 137 MEQ/L (136-145); TOTAL PROTEIN 6.8 GM/DL (6.4-8.2)
--- NOTE | 2018-07-11 13:26 | REP ---
KUB, ONE VIEW: HISTORY: Abdominal pain. Air is present in the small and large intestine. There are no air fluid levels or dilated loops of intestine. There is no pneumoperitoneum. The patient is status-post bilateral total hip replacement. Impression: Nonspecific bowel gas pattern. Electronically Signed by Fco Masterson MD 07/11/2018 01:28 P
== END ==
LOC: M LAB 09:16
PROVIDERS: ATTEND Internal Medicine
DX: G30.9 Alzheimer's disease, unspecified (principal); R10.9 Unspecified abdominal pain; R41.82 Altered mental status, unspecified

== ENCOUNTER → 2018-08-01 | Outpatient (CLI) | payer MEDICARE, MEDICAID ==
[2018-08-01 11:57] LABS: BASO % 0.2 % (0.0-1.0); EOS % 0.9 % (0.0-3.0); HEMATOCRIT 31.7 % (36.0-47.0); LYMPH # 1.4 10^3/uL (1.5-4.5); LYMPH % 30.9 % (24.0-44.0); MEAN CORPUSCULAR HEMOGLOBIN 27.5 pg (27.0-33.0); MEAN CORPUSCULAR HGB CONC 31.5 g/dl (32.0-36.5); MEAN CORPUSCULAR VOLUME 87.3 fl (80.0-96.0); MONO % 20.9 % (0.0-5.0); PLATELET COUNT, AUTOMATED 546 10^3/uL (150-450); RED BLOOD COUNT 3.63 10^6/uL (4.00-5.40); WHITE BLOOD COUNT 4.6 10^3/uL (4.0-10.0)
[2018-08-01 12:46] LABS: ALBUMIN 2.2 GM/DL (3.2-5.2); ALT/SGPT 61 U/L (12-78); BILIRUBIN,TOTAL 0.3 MG/DL (0.2-1.0); BLOOD UREA NITROGEN 11 MG/DL (7-18); CALCIUM LEVEL 8.7 MG/DL (8.5-10.1); CARBON DIOXIDE LEVEL 29 MEQ/L (21-32); CHLORIDE LEVEL 100 MEQ/L (98-107); CREATININE FOR GFR 0.39 MG/DL (0.55-1.30); GLOMERULAR FILTRATION RATE > 60.0 (>58); GLUCOSE, FASTING 93 MG/DL (70-100); POTASSIUM SERUM 4.9 MEQ/L (3.5-5.1); SODIUM LEVEL 138 MEQ/L (136-145); TOTAL PROTEIN 6.7 GM/DL (6.4-8.2)
--- NOTE | 2018-08-01 14:06 | REP ---
LUMBAR SPINE, FIVE VIEWS: HISTORY: Back pain. There is no acute fracture or subluxation. The intervertebral discs are normal in height. The facet joints are normal in appearance. Heterogenous increased density is present in the visualized bone. The patient is status-post bilateral total hip replacement. IMPRESSION: 1. There is no acute fracture or subluxation. 2. There is heterogenous increased density in the visualized bone. This may be secondary to metabolic or congenital bone disease. Electronically Signed by Fco Masterson MD 08/01/2018 02:08 P
--- NOTE | 2018-08-01 14:45 | REP ---
THORACIC SPINE, THREE VIEWS: HISTORY: Back pain. There is no acute fracture or subluxation. The intervertebral discs are normal in height. Heterogeneous increased density is present in the visualized bone. IMPRESSION: 1. There is no acute fracture or subluxation. 2. There is heterogeneous increased density in the visualized bone. This may be secondary to metabolic or congenital bone disease. Electronically Signed by Fco Masterson MD 08/01/2018 02:46 P
--- NOTE | 2018-08-01 14:54 | REP ---
BILATERAL HIPS, FOUR VIEWS: HISTORY: Hip pain. RIGHT HIP: The patient is status post right total hip replacement. There is no acute fracture or dislocation. Heterogeneous increased density is present in the bone. IMPRESSION: There is heterogeneous increased density in the bone. This may represent metabolic or congenital bone disease. LEFT HIP: The patient is status post left total hip replacement. There is no acute fracture or dislocation. Heterogeneous increased density is present in the bone. IMPRESSION: There is heterogeneous increased density in the bone. This may represent metabolic or congenital bone disease. Electronically Signed by Fco Masterson MD 08/01/2018 02:57 P
== END ==
LOC: M LAB 11:06
PROVIDERS: ATTEND Internal Medicine
DX: M54.5 Low back pain (principal)

== ENCOUNTER → 2018-09-27 | Outpatient (CLI) | payer MEDICARE, MEDICAID ==
[2018-09-27 09:17] LABS: PTH INTACT 88.8 PG/ML (18.5-88.0); TOTAL 25(OH) VITAMIN D 24.3 NG/ML (30.0-100.0)
== END ==
LOC: M LAB 07:31
PROVIDERS: ATTEND Internal Medicine
DX: F71 Moderate intellectual disabilities (principal); G30.9 Alzheimer's disease, unspecified; Z79.899 Other long term (current) drug therapy